=== PATIENT | female | born 1945 | race Caucasian/White ===

== ENCOUNTER 2024-04-21 13:39 | Observation (INO) | payer MEDICARE, SELFPAY ==
[2024-04-21] VITALS (8 sets, daily range): BP systolic 118–149; BP diastolic 60–88; PULSE 62–99; TEMP 36.3–36.9; O2SAT 93–96; BMI 46.7; BMI 47.0
--- NOTE | 2024-04-21 14:04 | ED_ITS ---
HPI HPI - General Adult General Chief complaint: Extremity Problem, Nontraumatic Stated complaint: SENT BY DR BHATT INFECTION IN ARM Time Seen by Provider: 04/21/24 13:43 Source: patient and family (Granddaughter) Mode of arrival: walk-in Limitations: no limitations History of Present Illness HPI narrative: So the 8-year-old female presents to the emergency department with granddaughter with complaint of increasing right arm redness. History of cellulitis in this arm in the past. She was initially evaluated for this occurrence on Friday at [facility]. She was given IV dose of vancomycin and discharged on doxycycline. Today, noticing that her redness is worsening, especially to the triceps region. She does have some associated pain, warmth. Patient also expresses some concern about her congestive heart failure. States she has gained 3 pounds. Feels a little fullness in the abdominal region and has had some dyspnea on exertion. + Fever, Tmax of 101.9 denies any chills, chest pain, motor or sensory changes, paresthesias. Quality:?As above Severity:?Moderate Timing:?As above, worsening Context: Normal setting and activity? Modifying factors:?Worsening despite home meds Associated symptoms: As above Related Data Home Medications ?Medication ?Instructions ?Recorded ?Confirmed citalopram 20 mg tablet 20 mg PO DAILY 04/21/24 04/21/24 doxycycline hyclate 100 mg capsule 100 mg PO BID 04/21/24 04/21/24 fluticasone 250 mcg-salmeterol 50 1 inh inhalation Q12H 04/21/24 04/21/24 mcg/dose blistr powdr for inhalation furosemide 40 mg tablet 40 mg PO DAILY 04/21/24 04/21/24 metoprolol succinate 25 mg 25 mg PO DAILY 04/21/24 04/21/24 tablet,extended release 24 hr montelukast 10 mg tablet 10 mg PO DAILY 04/21/24 04/21/24 spironolactone 25 mg tablet 25 mg PO DAILY 04/21/24 04/21/24 valsartan 40 mg tablet 40 mg PO DAILY 04/21/24 04/21/24 Allergies Allergy/AdvReac Type Severity Reaction Status Date / Time ibuprofen Allergy Severe Congested Verified 04/21/24 13:50 moxifloxacin (From Avelox) Allergy Severe Anaphylaxis Verified 04/21/24 13:50 Penicillins Allergy Severe Rash Verified 04/21/24 13:50 Opioid HPI Opioid Management Most Recent Opioid Data: Last Pain Scale 6 04/21/24 14:02 04/21/24 Review of Systems ROS Narrative CONST: Denies fever, chills RESP: + shortness of breath on exertion CV: Denies chest pain, palpitations GI: + mild abd distension. Denies abd pain, nausea, vomiting MS: Denies back pain, myalgias SKIN: + color change, rash NEURO: Denies numbness, weakness PSYCHIATRIC: Denies confusion, agitation PFSH [facility] Medical History (Updated 04/21/24 @ 15:59 by MARIBEL Flood) Asthma ?J45.909 - Unspecified asthma, uncomplicated (ICD-10) Macular degeneration ?H35.30 - Unspecified macular degeneration (ICD-10) Cancer of breast, female ?C50.919 - Malignant neoplasm of unspecified site of unspecified female breast (ICD-10) Depression ?F32.A - Depression, unspecified (ICD-10) Cellulitis ?L03.90 - Cellulitis, unspecified (ICD-10) HTN (hypertension) ?I10 - Essential (primary) hypertension (ICD-10) CHF (congestive heart failure) ?I50.9 - Heart failure, unspecified (ICD-10) Social History Little interest or pleasure in doing things: not at all Feeling down, depressed, or hopeless: not at all Exam Narrative Exam Narrative: Vital signs reviewed Nurses notes noted CONST: Nontoxic, well appearing, well nourished, in no distress.? No diaphoresis.?? HENT: normocephalic, atraumatic, moist mucous membrane, no abnormalities of the nose noted, hearing normal EYES: normal appearing conjunctiva, no apparent discharge bilat NECK: normal appearance CV: normal rate, regular rhythm, no murmur RESP: normal effort, speaking in complete sentences. Lung sounds clear and equal bilat.? No wheezes, rales, rhonchi MS: Right arm: There is diffuse erythema, warmth noted throughout the extremity. The the areas of erythema are patchy. There is associated tenderness. 2+ palpable distal pulses present. SKIN: + Erythema NEURO: A&Ox 3, no focal findings PSYCH: normal mood, affect Constitutional Vital Signs, click to edit/add: Last Vital Signs Temp 98.5 F 04/21/24 13:45 Pulse 70 04/21/24 15:52 Resp 18 04/21/24 15:52 BP 126/88 04/21/24 15:52 Pulse Ox 96 04/21/24 15:52 O2 Del Method Room Air 04/21/24 13:45 Course Consultations Consultation #1: Patient discussed with Dr. Wiggins who is agreeable with admission Time: 15:54 Vital Signs Vital signs: Vital Signs Temperature 98.5 F 04/21/24 13:45 Pulse Rate 77 04/21/24 13:45 Respiratory Rate 20 04/21/24 13:45 Blood Pressure 127/62 04/21/24 13:45 Pulse Oximetry 93 L 04/21/24 13:45 Oxygen Delivery Method Room Air 04/21/24 13:45 Temperature 98.5 F 04/21/24 13:45 Pulse Rate 70 04/21/24 15:52 Respiratory Rate 18 04/21/24 15:52 Blood Pressure 126/88 04/21/24 15:52 Pulse Oximetry 96 04/21/24 15:52 Oxygen Delivery Method Room Air 04/21/24 13:45 Medical Decision Making MDM Narrative Medical decision making narrative: This is a pleasant 78-year-old female who presents to the emergency department for evaluation of right arm redness. Also has some concern about her congestive heart failure with 3 pound weight gain. Patient received IV dose of vancomycin on Friday and was started on outpatient doxycycline for her arm. Despite this, has noted worsening s/sx and came in for further treatment. On arrival, febrile, afebrile, vital signs are stable On exam, nontoxic, well appearing patient, in no apparent distress. There is diffuse erythema, patches noted throughout her right arm. There is associated warmth, mild tenderness. Distal pulses intact. Neurovascularly intact. Heart regular rate and rhythm. Lung sounds clear and equal bilaterally. IV access established, blood work was drawn and sent to the lab. She was started on IV vancomycin, as well as, IV Rocephin. Labs reveal no leukocytosis, anemia, thrombocytopenia, electrolyte imbalance, renal impairment. Glucose 127. Favor right arm cellulitis SIRS less likely based on vital signs History and Record Review Discussion with independent historian:granddaughter and primary care provider Additional records reviewed: ED chart from 04/19/2024. Patient had white count at that time of 14,000. Lactate was 1.9. Management Discussion with another healthcare provider: Dr. Wiggins, admitting team Independent interpretation imaging: CXR: NAD Re-Evaluation Patient remained stable during evaluation Disposition/plan ED disposition: Plan: Patient will be admitted.? Condition at time of disposition: stable. PLEASE NOTE: Portions of the medical record may have been produced using electronic remote control assembler and may contain errors with respect to translation of words which may not have been identified prior to finalization of the chart. Medical Records Medical records reviewed: Yes I reviewed the patient's medical records Lab Data Lab results reviewed: Yes I reviewed the patient's lab results Labs: Lab Results 04/21/24 Range/Units 13:56 WBC 7.2 (4.0-11.0) 10^3/uL RBC 5.09 (4.20-5.40) 10^6/uL Hgb 15.5 (12.0-16.0) g/dL Hct 47.2 (36.0-48.0) % MCV 92.7 (81.0-99.0) fL MCH 30.5 (26.7-34.0) pg MCHC 32.8 (29.9-35.2) g/dL RDW 13.9 (11.0-15.0) % Plt Count 200 (150-450) 10^3/uL MPV 9.3 L (9.5-13.5) fL Neut % (Auto) 64.3 (43.0-75.0) % Lymph % (Auto) 25.0 (20.5-60.0) % [place] % (Auto) 6.9 (1.7-12.0) % Eos % (Auto) 2.9 (0.9-7.0) % Baso % (Auto) 0.6 (0.2-2.0) % Neut # (Auto) 4.6 (1.4-6.5) 10^3/uL Lymph # (Auto) 1.8 (1.2-3.8) 10^3/uL [place] # (Auto) 0.5 (0.3-0.8) 10^3/uL Eos # (Auto) 0.2 (0.0-0.7) 10^3/uL Baso # (Auto) 0.0 (0.0-0.1) 10^3/uL Abs Immat Gran (auto) 0.02 (0.00-0.03) 10^3/uL Imm/Tot Granulo (auto) 0.3 (0.0-0.5) % Sodium 138 (136-145) mmol/L Potassium 3.5 (3.5-5.1) mmol/L Chloride 103 (98-107) mmol/L Carbon Dioxide 28.1 (21.0-32.0) mmol/L Anion Gap 10.4 BUN 19.0 H (7.0-18.0) mg/dL Creatinine 1.00 (0.55-1.02) mg/dL Est GFR ( Amer) >60 (>=60 mL/min/1.73m^2) Est GFR (Non-Af Amer) 54 L (>=60 mL/min/1.73m^2) BUN/Creatinine Ratio 19.0 Glucose 127 H (74-106) mg/dL Calcium 9.1 (8.5-10.1) mg/dL Magnesium 1.8 (1.8-2.4) mg/dL Total Bilirubin 0.4 (0.2-1.0) mg/dL AST 19 (15-37) U/L ALT 25 (14-59) U/L Alkaline Phosphatase 78 (46-116) U/L NT-Pro-B Natriuret Pep 360.0 (<=1800.0) pg/mL Total Protein 7.4 (6.4-8.2) g/dL Albumin 3.5 (3.4-5.0) g/dL Globulin 3.9 g/dL Albumin/Globulin Ratio 0.9 Imaging Data CXR, Right Forearm, and Right Humerus: Attestation: I have reviewed the pertinent imaging results. Radiologist's impression: Chest x-ray: No consolidation. No pulmonary edema, pleural effusion or pneumothorax. No acute process. Right lung nodule. X-ray right forearm and humerus: No acute fracture or dislocation. Soft tissue are normal. No acute bony process. Discharge Plan Discharge Chief Complaint: Extremity Problem, Nontraumatic Clinical Impression: Cellulitis of arm, right, Failure of outpatient treatment Congestive heart failure Qualifiers: Heart failure type: unspecified Heart failure chronicity: chronic Qualified Code(s): I50.9 - Heart failure, unspecified Patient Disposition: Admitted As Inpatient Time of Disposition Decision: 15:57 Condition: Good
[2024-04-21 14:10] LABS: Basophils Percent Auto 0.6 % (0.2-2.0); Eosinophils Absolute Auto 0.2 10^3/uL (0.0-0.7); Eosinophils Percent Auto 2.9 % (0.9-7.0); Hematocrit 47.2 % (36.0-48.0); Hemoglobin 15.5 g/dL (12.0-16.0); Immature Granulocytes Abs Auto 0.02 10^3/uL (0.00-0.03); Immature Granulocytes Pct Auto 0.3 % (0.0-0.5); Lymphocytes Absolute Auto 1.8 10^3/uL (1.2-3.8); Mean Corpuscular HGB Conc 32.8 g/dL (29.9-35.2); Mean Corpuscular Hemoglobin 30.5 pg (26.7-34.0); Mean Corpuscular Volume 92.7 fL (81.0-99.0); Mean Platelet Volume 9.3 fL (9.5-13.5); Monocytes Absolute Auto 0.5 10^3/uL (0.3-0.8); Monocytes Percent Auto 6.9 % (1.7-12.0); Neutrophils Absolute Auto 4.6 10^3/uL (1.4-6.5); Neutrophils Percent Auto 64.3 % (43.0-75.0); Platelet Count 200 10^3/uL (150-450); Red Blood Count 5.09 10^6/uL (4.20-5.40); Red Cell Distribution Width 13.9 % (11.0-15.0); White Blood Count 7.2 10^3/uL (4.0-11.0)
[2024-04-21] MEDS: CEFTRIAXONE 1,000 MG in 0.9 % SODIUM CHLORIDE 50 ML 100 MG IV (14:17)
[2024-04-21] MEDS: 0.9 % SODIUM CHLORIDE 1,000 ML 999 ML IV (14:17)
[2024-04-21] MEDS: VANCOMYCIN HCL 1,500 MG in 0.9 % SODIUM CHLORIDE 500 ML 250 MG IV (14:34)
[2024-04-21 14:41] LABS: Alanine Aminotransferase 25 U/L (14-59); Albumin Globulin Ratio 0.9; Albumin Level 3.5 g/dL (3.4-5.0); Alkaline Phosphatase 78 U/L (46-116); Anion Gap 10.4; Aspartate Amino Transferase 19 U/L (15-37); Bilirubin Total 0.4 mg/dL (0.2-1.0); Calcium 9.1 mg/dL (8.5-10.1); Carbon Dioxide 28.1 mmol/L (21.0-32.0); Chloride 103 mmol/L (98-107); Estimated GFR (African America >60 (>=60 mL/min/1.73m^2); Estimated GFR (Non-African Ame 54 (>=60 mL/min/1.73m^2); Globulin 3.9 g/dL; Glucose 127 mg/dL (74-106); Magnesium 1.8 mg/dL (1.8-2.4); Potassium 3.5 mmol/L (3.5-5.1); Sodium 138 mmol/L (136-145); Total Protein 7.4 g/dL (6.4-8.2)
[2024-04-21] MEDS: FUROSEMIDE 20 MG/2 ML VIAL IVP (16:17)
[2024-04-21] MEDS: CLINDAMYCIN PHOS 100 MG IV (20:14)
[2024-04-21] MEDS: ALBUTEROL SULFATE 2.5 MG/3 ML VIAL NEB IH (22:01)
[2024-04-21] MEDS: BUDESONIDE 0.5 MG/2 ML AMPULE NEB IH (22:01)
[2024-04-21] MEDS: ACETAMINOPHEN 500 MG TABLET 1000 MG PO (23:44)
[2024-04-22] VITALS (15 sets, daily range): BP systolic 102–144; BP diastolic 50–68; PULSE 57–77; TEMP 36.3–36.9; O2SAT 90–97
[2024-04-22] MEDS: CLINDAMYCIN PHOS 100 MG IV ×4 (03:00→20:15)
[2024-04-22] MEDS: ALBUTEROL SULFATE 2.5 MG/3 ML VIAL NEB IH ×3 (04:05→23:02)
[2024-04-22 05:36] LABS: Basophils Absolute Auto 0.1 10^3/uL (0.0-0.1); Eosinophils Absolute Auto 0.3 10^3/uL (0.0-0.7); Eosinophils Percent Auto 4.2 % (0.9-7.0); Hematocrit 42.6 % (36.0-48.0); Immature Granulocytes Abs Auto 0.02 10^3/uL (0.00-0.03); Immature Granulocytes Pct Auto 0.3 % (0.0-0.5); Lymphocytes Absolute Auto 2.6 10^3/uL (1.2-3.8); Lymphocytes Percent Auto 41.8 % (20.5-60.0); Mean Corpuscular HGB Conc 32.9 g/dL (29.9-35.2); Mean Corpuscular Hemoglobin 30.1 pg (26.7-34.0); Mean Corpuscular Volume 91.6 fL (81.0-99.0); Mean Platelet Volume 8.8 fL (9.5-13.5); Monocytes Absolute Auto 0.7 10^3/uL (0.3-0.8); Monocytes Percent Auto 11.6 % (1.7-12.0); Neutrophils Absolute Auto 2.5 10^3/uL (1.4-6.5); Neutrophils Percent Auto 41.1 % (43.0-75.0); Platelet Count 187 10^3/uL (150-450); Red Blood Count 4.65 10^6/uL (4.20-5.40); Red Cell Distribution Width 14.1 % (11.0-15.0); White Blood Count 6.1 10^3/uL (4.0-11.0)
[2024-04-22 05:47] LABS: Anion Gap 13.6; Calcium 8.7 mg/dL (8.5-10.1); Carbon Dioxide 25.8 mmol/L (21.0-32.0); Chloride 105 mmol/L (98-107); Estimated GFR (African America >60 (>=60 mL/min/1.73m^2); Estimated GFR (Non-African Ame >60 (>=60 mL/min/1.73m^2); Glucose 101 mg/dL (74-106); Potassium 3.4 mmol/L (3.5-5.1); Sodium 141 mmol/L (136-145)
--- OUTSIDE RECORDS SUMMARY | 2024-04-22 06:33 | XMS_ITS | CCD ---
Author Organization [facility] Care Team Providers Care Optoelectronic Technician Name Role Phone JEFFERY, SHARON Admitting Unavailable PAY, SHARON Attending Unavailable BHATT, RICHIE A Primary Care Unavailable MATTI MCMAHAN Consulting Unavailable PAY, SHARON Consulting Unavailable , BO Dobbs Attending Unavailable BHATT, RICHIE A Referring Unavailable BHATT, RICHIE A Primary Care Unavailable BHATT, RICHIE A Referring Unavailable BHATT, RICHIE A Primary Care Unavailable BHATT, RICHIE A Primary Care Unavailable EMMANUEL WISEMAN Attending Unavailable DEBENEDETTI, MISSY Barajas Attending Unavailable BHATT, RICHIE A Referring Unavailable BHATT, RICHIE A Primary Care Unavailable DEBENEDETTI, MISSY Barajas Attending Unavailable DEBENEDETTI, MISSY Barajas Referring Unavailable BHATT, RICHIE A Primary Care Unavailable BHATT, RICHIE A Primary Care Unavailable YENNIFER SWANSON Attending Unavailable BRANDYN BRITO Admitting Unavailable BHATT, RICHIE A Primary Care Unavailable LUCIA, RUQIYYA T Admitting Unavailable LUCIA, RUQIYYA T Attending Unavailable BHATT, RICHIE A Primary Care Unavailable CASPER CABRALES Attending Unavailable Allergies Allergy Classification Reported Allergen(s) Allergy Type Date of Onset Reaction(s) Facility (1 source) moxifloxacin Drug Allergy [facility] Repository (1 source) NSAIDs Drug allergy (disorder) [facility] Rep[facility] (1 source) Penicillin Drug Allergy [facility] Rep[facility] (1 source) Sulfonamides (Antibiotic) Drug allergy (disorder) [facility] Repository (1 source) moxifloxacin; Translations: [MOXIFLOXACIN HCL] Drug Allergy 3 [facility] Repository (1 source) moxifloxacin; Translations: [MOXIFLOXACIN] Drug Allergy 9 [facility] (1 source) Naproxen; Translations: [NAPROXEN] Drug Allergy 9 [facility] Repository (1 source) Penicillins; Translations: [PENICILLINS] Propensity to adverse reactions to drug (disorder) [facility] Repository (1 source) Sulfonamides (Antibiotic); Translations: [SULFA (SULFONAMIDE ANTIBIOTICS)] Propensity to adverse reactions to drug (disorder) 9 [facility] Repository Problems Active Problems Problem Classification Problem Date Documented Date Episodic/Chronic Biliary tract disease (1 source) Disease of biliary tract, unspecified; Translations: [DISEASE BILIARY TRACT UNSPECIFIED] Onset: 09-03-2018 Chronic Chronic obstructive pulmonary disease and bronchiectasis (1 source) Chronic obstructive pulmonary disease with (acute) exacerbation; Translations: [Chronic obstructive pulmonary disease with (acute) exacerbation] Onset: 03-17-2024 Chronic Congestive heart failure; nonhypertensive (3 sources) Chronic combined systolic (congestive) and diastolic (congestive) heart failure; Translations: [Acute systolic (congestive) heart failure] Onset: 05-08-2021 Chronic Coronary atherosclerosis and other heart disease (1 source) Atherosclerotic heart disease of [place] coronary artery without angina pectoris; Translations: [Atherosclerotic heart disease of [place] coronary artery without angina pectoris] Onset: 04-28-2023 Chronic Esophageal disorders (1 source) Gastro-esophageal reflux disease without esophagitis; Translations: [GERD WITHOUT ESOPHAGITIS] Onset: 09-03-2018 Chronic Essential hypertension (1 source) Essential (primary) hypertension; Translations: [Essential (primary) hypertension] Onset: 08-30-2022 Chronic Influenza (1 source) Influenza due to other identified influenza virus with other respiratory manifestations; Translations: [Influenza due to other identified influenza virus with other respiratory manifestations] Onset: 03-17-2024 Episodic Other lower respiratory disease (1 source) Shortness of breath Onset: 02-28-2024 Episodic Other nutritional; endocrine; and metabolic disorders (1 source) Body mass index (BMI) 45.0-49.9, adult; Translations: [Body mass index (BMI) 45.0-49.9, adult] Onset: 08-30-2022 Chronic [place]-; endo-; and myocarditis; cardiomyopathy (except that caused by tuberculosis or sexually transmitted disease) (1 source) Other cardiomyopathies; Translations: [Other cardiomyopathies] Onset: 05-17-2021 Chronic Skin and subcutaneous tissue infections (2 sources) Cellulitis of right upper limb; Translations: [Cellulitis] Onset: 08-30-2022 Episodic Unclassified (1 source) Animal Bite Onset: 10-16-2023 Unclassified (1 source) Wound Check Onset: 10-16-2023 Viral infection (1 source) Other specified viral diseases; Translations: [Other specified viral diseases] Onset: 02-28-2024 Episodic Past or Other Problems Problem Classification Problem Date Documented Da te Episodic/Chronic Abdominal pain (4 sources) Right upper quadrant pain; Translations: [RIGHT UPPER QUADRANT PAIN] Onset: 09-01-2018 Episodic Cancer of breast (1 source) Personal history of malignant neoplasm of breast; Translations: [PERS HX MALIGNANT NEOPLASM BREAST] Onset: 09-03-2018 Episodic E Codes: Natural/environment (1 source) Bitten by cat, initial encounter; Translations: [Bitten by cat, initial encounter] Onset: 10-16-2023 Episodic Other lower respiratory disease (1 source) Shortness of breath; Translations: [Shortness of breath] Onset: 09-30-2021 Episodic Other screening for suspected conditions (not mental disorders or infectious disease) (1 source) Encounter for screening mammogram for malignant neoplasm of breast; Translations: [Encounter for screening mammogram for malignant neoplasm of breast] Onset: 06-23-2023 Episodic Residual codes; unclassified (1 source) Acquired absence of other specified parts of digestive tract; Translations: [ACQ ABSENCE OTH PART DIGESTV TRACT] Onset: 09-03-2018 Episodic Results Test Name Value Interpretation Reference Range Facility BASIC METABOLIC PANLon 04-19 Anion gap [Moles/Vol] 10 mmol/L Normal 5-15 [facility] Comment on above: Performed By: #### C BCA, 28007-3, PINR, 44877-8, CMP, 24822-9, 76048-3, 29124-0 #### [facility] ([id number]) [address] [place] [address], [place] [address] Calcium [Mass/Vol] 9.5 mg/dL Normal 8.5-10.5 [facility] Comment on above: Performed By: #### C BCA, 81338-5, PINR, 78531-3, CMP, 97321-9, 16834-8, 54910-8 #### [facility] ([id number]) [address] [place] [address] 55232 Chloride [Moles/Vol] 100 mmol/L Normal 98-109 [facility] Comment on above: Performed By: #### C BCA, 08063-5, PINR, 50241-6, CMP, 60149-1, 56811-1, 58009-4 #### [facility] ([id number]) [address] [place] [address] 83536 CO2 [Moles/Vol] 22 mmol/L Normal 22-32 [facility] Comment on above: Performed By: #### C BCA, 42755-7, PINR, 27692-6, CMP, 73179-2, 20651-5, 95306-3 #### [facility] ([id number]) [address] [place] [address] 20205 Creatinine [Mass/Vol] 0.96 mg/dL Normal 0.40-1.00 [facility] Comment on above: Result Comment: METH OD TRACEABLE TO IDMS STANDARD Performed By: #### C BCA, 67202-4, PINR, 04220-1, CMP, 46216-5, 59841-7, 51555-5 #### [facility] ([id number]) [address] [place] [address] 61607 GFR/1.73 sq M.predicted among non-blacks MDRD (S/P/Bld) [Vol rate/Area] 61 mL/min/{1.73_m2} Normal >59 [facility] Comment on above: Result Comment: Reported eGFR is based on the CKD-EPI 2020 equation that does not use a race coefficient. Performed By: #### C BCA, 30104-9, PINR, 52825-2, CMP, 39952-0, 20209-7, 84155-3 #### [facility] ([id number]) [address] [place] [address] 50829 Glucose [Mass/Vol] 135 mg/dL High 65-99 [facility] Comment on above: Performed By: #### C BCA, 13084-4, PINR, 29983-4, CMP, 28813-1, 68054-6, 77153-3 #### [facility] ([id number]) [address] [place] [address] 98952 Potassium [Moles/Vol] 3.7 mmol/L Normal 3.5-5.0 [facility] Comment on above: Performed By: #### C BCA, 05768-6, PINR, 38739-2, CMP, 83221-7, 26202-0, 99846-3 #### [facility] ([id number]) [address] [place] [address] 07234 Sodium [Moles/Vol] 132 mmol/L Low 134-146 [facility] Comment on above: Performed By: #### C BCA, 64843-5, PINR, 11724-2, CMP, 29139-1, 90045-3, 83439-9 #### [facility] ([id number]) [address] [place] [address] 28872 Urea nitrogen [Mass/Vol] 22 mg/dL Normal 5-27 [facility] Comment on above: Performed By: #### C BCA, 65331-7, PINR, 65605-4, CMP, 79923-3, 64170-7, 68209-2 #### [facility] ([id number]) [address] [place] [address] 40367 CBC AND AUTO DIFFon 03-10-20 25 ABSOLUTE BASOPHIL 0.0 X10E9/L Normal 0.0-0.2 [facility] Comment on above: Performed By: #### C BCA, 96885-7, PINR, 98690-3, CMP, 61008-7, 06236-0, 76631-0 #### [facility] ([id number]) [address] [place] [address] 39841 ABSOLUTE NEUTROPHIL 11.6 X10E9/L High 1.5-6.6 [facility] Comment on above: Performed By: #### C BCA, 91101-0, PINR, 80842-0, CMP, 66688-9, 59026-5, 92328-6 #### [facility] ([id number]) [address] [place] [address] 12988 Basophils/100 WBC (Bld) 0.3 % Normal [facility] Comment on above: Performed By: #### C BCA, 85100-4, PINR, 25421-5, CMP, 94953-3, 16808-9, 35691-6 #### [facility] ([id number]) [address] [place] [address] 18421 Eosinophils (Bld) [#/Vol] 0.0 10*3/uL Normal 0.0-0.4 [facility] Comment on above: Performed By: #### C BCA, 28611-3, PINR, 21765-4, CMP, 71900-9, 77207-2, 65788-5 #### [facility] ([id number]) [address] [place] [address] 83765 Eosinophils/100 WBC (Bld) 0.1 % Normal [facility] Comment on above: Performed By: #### C BCA, 19239-4, PINR, 65995-9, CMP, 68840-5, 34938-0, 19938-7 #### [facility] ([id number]) [address] [place] [address] 28608 Erythrocyte distribution width (RBC) [Ratio] 14.2 % Normal 11.5-15.0 [facility] Comment on above: Performed By: #### C BCA, 95524-0, PINR, 93862-7, CMP, 61895-9, 81799-4, 29072-9 #### [facility] ([id number]) [address] [place] [address] 20601 Hematocrit (Bld) [Volume fraction] 46.2 % Normal 35-47 [facility] Comment on above: Performed By: #### C BCA, 30126-0, PINR, 13979-0, CMP, 15435-2, 45512-4, 78587-3 #### [facility] ([id number]) [address] [place] [address] 90571 Hemoglobin (Bld) [Mass/Vol] 15.6 g/dL High 11.7-15.5 [facility] Comment on above: Performed By: #### C BCA, 92866-9, PINR, 70176-9, CMP, 25050-1, 96526-6, 23678-6 #### [facility] ([id number]) [address] [place] [address] 24717 Lymphocytes (Bld) [#/Vol] 1.2 10*3/uL Normal 1.0-3.5 [facility] Comment on above: Performed By: #### C BCA, 75128-5, PINR, 61421-4, CMP, 20621-8, 88009-4, 93296-6 #### [facility] ([id number]) [address] [place] [address] 47794 Lymphocytes/100 WBC (Bld) 8.3 % Normal [facility] Comment on above: Performed By: #### C BCA, 09676-5, PINR, 24696-9, CMP, 83182-3, 33800-8, 62820-5 #### [facility] ([id number]) [address] [place] [address] 89702 MCH (RBC) [Entitic mass] 30.4 pg Normal 27-34 [facility] Comment on above: Performed By: #### C BCA, 39403-7, PINR, 75254-7, CMP, 16742-0, 27355-5, 21294-5 #### [facility] ([id number]) [address] [place] [address] 00914 MCHC (RBC) [Mass/Vol] 33.9 g/dL Normal 32-36 [facility] Comment on above: Performed By: #### C BCA, 98210-1, PINR, 85201-2, CMP, 14976-3, 77404-2, 32014-5 #### [facility] ([id number]) [address] [place] [address] 96190 MCV (RBC) [Entitic vol] 90 fL Normal 80-100 [facility] Comment on above: Performed By: #### C BCA, 79459-2, PINR, 10468-2, CMP, 16460-8, 01028-6, 44727-0 #### [facility] ([id number]) [address] [place] [address] 04479 Monocytes (Bld) [#/Vol] 1.2 10*3/uL High 0-0.9 [facility] Comment on above: Performed By: #### C BCA, 09221-4, PINR, 87082-2, CMP, 01442-9, 73620-6, 44514-3 #### [facility] ([id number]) [address] [place] [address] 19530 Monocytes/100 WBC (Bld) 8.4 % Normal [facility] Comment on above: Performed By: #### C BCA, 57477-0, PINR, 14433-9, CMP, 70858-1, 94696-2, 59127-5 #### [facility] ([id number]) [address] [place] [address] 34540 Neutrophils/100 WBC (Bld) 82.9 % Normal [facility] Comment on above: Performed By: #### C BCA, 31252-9, PINR, 24643-8, CMP, 65658-0, 48763-8, 86265-4 #### [facility] ([id number]) [address] [place] [address] 74548 Platelet mean volume (Bld) [Entitic vol] 6.9 fL Low 7-12 [facility] Comment on above: Performed By: #### C BCA, 38512-4, PINR, 96092-1, CMP, 60540-0, 25392-3, 07519-4 #### [facility] ([id number]) [address] [place] [address] 90892 Platelets (Bld) [#/Vol] 198 10*3/uL Normal 150-450 [facility] Comment on above: Performed By: #### Ta BCA, 81964-6, PINR, 80687-6, CMP, 18252-5, 86251-3, 90756-7 #### [facility] ([id number]) [address] [place] [address] 25498 RBC COUNT 5.14 X10E12/L Normal 3.80-5.20 [facility] Comment on above: Performed By: #### Ta BCA, 10913-1, PINR, 99168-1, CMP, 75126-3, 71021-9, 26061-1 #### [facility] ([id number]) [address] [place] [address] 82022 WBC (Bld) [#/Vol] 14.0 10*3/uL High 4.0-11.0 [facility] Comment on above: Performed By: #### Ta BCA, 86421-8, PINR, 03559-7, CMP, 47215-4, 89197-5, 98032-7 #### [facility] ([id number]) [address] [place] [address] 21097 Lactate (P chavo) [Moles/Vol]o n 04-19-2024 LACTATE W/REFLEX 1.9 mmol/L Normal 0.4-2.0 [facility] Comment on above: Result Comment: Result did not trigger repeat Lactate, re-order if needed. Performed By: #### C BCA, 70015-8, PINR, 59075-7, CMP, 26527-6, 36344-8, 09088-0 #### [facility] ([id number]) [address] [place] [address] 58871 URN MACROSCOPIC NURon 2024 BILIRUBIN [place] Negative Normal [facility] Comment on above: Performed By: #### C BCA, 44212-1, PINR, 44854-9, CMP, 33765-2, 72635-3, 44827-5 #### [facility] ([id number]) [address] [place] [address] 81833 BLOOD/HGB [place] Trace Abnormal [facility] Comment on above: Performed By: #### C BCA, 82051-2, PINR, 42977-0, CMP, 31099-2, 77933-9, 37662-8 #### [facility] ([id number]) [address] [place] [address] 56396 GLUCOSE [place] 500 mg/dL Abnormal [facility] Comment on above: Performed By: #### C BCA, 20443-7, PINR, 61072-6, CMP, 81495-1, 26176-1, 78694-4 #### [facility] ([id number]) [address] [place] [address] 64998 KETONES [place] Trace Abnormal [facility] Comment on above: Performed By: #### C BCA, 63463-9, PINR, 48353-7, CMP, 10172-3, 15353-1, 95004-6 #### [facility] ([id number]) [address] [place] [address] 04270 LEUKOCYTE ESTERASE [place] Negative Normal [facility] Comment on above: Performed By: #### C BCA, 96036-5, PINR, 86252-9, CMP, 12608-6, 51708-8, 97297-1 #### [facility] ([id number]) [address] [place] [address] 21695 NITRITE [place] Negative Normal [facility] Comment on above: Performed By: #### C BCA, 12617-3, PINR, 66181-7, CMP, 63315-1, 73405-0, 28553-6 #### [facility] ([id number]) [address] [place] [address] 07793 PH [place] 5.5 Normal 5.0-8.5 [facility] Comment on above: Performed By: #### C BCA, 12626-2, PINR, 10434-8, CMP, 57505-4, 93300-6, 10425-9 #### [facility] ([id number]) [address] [place] [address] 52642 PROTEIN [place] Trace Abnormal [facility] Comment on above: Performed By: #### C BCA, 30418-9, PINR, 79320-4, CMP, 22763-3, 39276-9, 30970-5 #### [facility] ([id number]) [address] [place] [address] 73738 SPECIFIC GRAVITY [place] 1.020 Normal 1.003-1.035 [facility] Comment on above: Performed By: #### C BCA, 83813-3, PINR, 46843-1, CMP, 78307-8, 57178-6, 20759-2 #### [facility] ([id number]) [address] [place] [address] 62654 UROBILINOGEN [place] 0.2 eu/dL Normal <1.1 [facility] Comment on above: Performed By: #### C BCA, 07806-0, PINR, 92964-9, CMP, 08533-2, 91295-5, 12328-3 #### [facility] ([id number]) [address] [place] [address] 72061 CBC AND AUTO DIFFon 03-19-19 25 ABSOLUTE BASOPHIL 0.0 X10E9/L Normal 0.0-0.2 [facility] Comment on above: Performed By: #### C BCA, 88263-2, PINR, 84834-9, CMP, 51873-5, 85352-4, 89687-1 #### [facility] ([id number]) [address] [place] [address] 48380 ABSOLUTE NEUTROPHIL 7.3 X10E9/L High 1.5-6.6 [facility] Comment on above: Performed By: #### C BCA, 48644-4, PINR, 22155-3, CMP, 77683-1, 80545-5, 41588-0 #### [facility] ([id number]) [address] [place] [address] 71838 Basophils/100 WBC (Bld) 0.1 % Normal [facility] Comment on above: Performed By: #### C BCA, 60932-8, PINR, 61162-5, CMP, 94784-5, 51849-0, 32190-3 #### [facility] ([id number]) [address] [place] [address] 63849 Eosinophils (Bld) [#/Vol] 0.0 10*3/uL Normal 0.0-0.4 [facility] Comment on above: Performed By: #### C BCA, 20538-8, PINR, 49118-4, CMP, 85539-1, 19878-5, 89628-9 #### [facility] ([id number]) [address] [place] [address] 27002 Eosinophils/100 WBC (Bld) 0.0 % Normal [facility] Comment on above: Performed By: #### C BCA, 13576-7, PINR, 49419-3, CMP, 76762-9, 16533-0, 97847-0 #### [facility] ([id number]) [address] [place] [address] 02824 Erythrocyte distribution width (RBC) [Ratio] 13.9 % Normal 11.5-15.0 [facility] Comment on above: Performed By: #### C BCA, 16551-2, PINR, 58798-2, CMP, 42770-3, 06700-0, 44404-7 #### [facility] ([id number]) [address] [place] [address] 62495 Hematocrit (Bld) [Volume fraction] 43.0 % Normal 35-47 [facility] Comment on above: Performed By: #### C BCA, 31468-4, PINR, 50035-2, CMP, 40857-1, 23485-5, 54588-0 #### [facility] ([id number]) [address] [place] [address] 20526 Hemoglobin (Bld) [Mass/Vol] 14.6 g/dL Normal 11.7-15.5 [facility] Comment on above: Performed By: #### C BCA, 94670-1, PINR, 43540-0, CMP, 33314-1, 22867-6, 75659-8 #### [facility] ([id number]) [address] [place] [address] 05574 Lymphocytes (Bld) [#/Vol] 0.6 10*3/uL Low 1.0-3.5 [facility] Comment on above: Performed By: #### C BCA, 11968-7, PINR, 26032-3, CMP, 18704-6, 31313-5, 74903-7 #### [facility] ([id number]) [address] [place] [address] 45469 Lymphocytes/100 WBC (Bld) 7.4 % Normal [facility] Comment on above: Performed By: #### C BCA, 24873-6, PINR, 11866-7, CMP, 72084-4, 39655-5, 66262-9 #### [facility] ([id number]) [address] [place] [address] 71663 MCH (RBC) [Entitic mass] 30.8 pg Normal 27-34 [facility] Comment on above: Performed By: #### C BCA, 30334-4, PINR, 50329-6, CMP, 83102-9, 69457-4, 42604-3 #### [facility] ([id number]) [address] [place] [address] 21269 MCHC (RBC) [Mass/Vol] 33.9 g/dL Normal 32-36 [facility] Comment on above: Performed By: #### C BCA, 03829-9, PINR, 90783-5, CMP, 22333-1, 11040-0, 75194-0 #### [facility] ([id number]) [address] [place] [address] 93444 MCV (RBC) [Entitic vol] 91 fL Normal 80-100 [facility] Comment on above: Performed By: #### C BCA, 63611-8, PINR, 29440-8, CMP, 96990-7, 66688-5, 68581-8 #### [facility] ([id number]) [address] [place] [address] 67793 Monocytes (Bld) [#/Vol] 0.5 10*3/uL Normal 0-0.9 [facility] Comment on above: Performed By: #### C BCA, 16627-9, PINR, 84996-7, CMP, 39368-4, 54201-5, 85557-4 #### [facility] ([id number]) [address] [place] [address] 58390 Monocytes/100 WBC (Bld) 5.7 % Normal [facility] Comment on above: Performed By: #### C BCA, 16646-0, PINR, 93779-4, CMP, 48950-3, 88627-4, 30812-0 #### [facility] ([id number]) [address] [place] [address] 51716 Neutrophils/100 WBC (Bld) 86.8 % Normal [facility] Comment on above: Performed By: #### C BCA, 82922-1, PINR, 15771-9, CMP, 47730-0, 15180-9, 77603-7 #### [facility] ([id number]) [address] [place] [address] 04422 Platelet mean volume (Bld) [Entitic vol] 7.8 fL Normal 7-12 [facility] Comment on above: Performed By: #### C BCA, 37014-4, PINR, 45024-1, CMP, 44908-7, 53038-2, 51210-1 #### [facility] ([id number]) [address] [place] [address] 07423 Platelets (Bld) [#/Vol] 186 10*3/uL Normal 150-450 [facility] Comment on above: Performed By: #### C BCA, 50567-5, PINR, 31472-1, CMP, 06596-2, 77969-3, 50866-6 #### [facility] ([id number]) [address] [place] [address] 73468 RBC COUNT 4.73 X10E12/L Normal 3.80-5.20 [facility] Comment on above: Performed By: #### C BCA, 52918-6, PINR, 80189-5, CMP, 99994-1, 85475-1, 35106-9 #### [facility] ([id number]) [address] [place] [address] 24825 WBC (Bld) [#/Vol] 8.4 10*3/uL Normal 4.0-11.0 [facility] Comment on above: Performed By: #### C BCA, 79384-8, PINR, 44305-2, CMP, 70706-2, 32663-6, 90563-4 #### [facility] ([id number]) [address] [place] [address]190 COMPREHENSIVE METABOLIC PANE Mark 03-19-2024 Albumin [Mass/Vol] 3.8 g/dL Normal 3.2-5.3 [facility] Comment on above: Performed By: #### C BCA, 57612-7, PINR, 38715-3, CMP, 08356-4, 80837-8, 26671-3 #### [facility] ([id number]) [address] [place] [address] 24811 ALP [Catalytic activity/Vol] 52 U/L Normal 39-130 [facility] Comment on above: Performed By: #### C BCA, 30003-6, PINR, 46618-3, CMP, 44546-8, 34406-8, 74197-5 #### [facility] ([id number]) [address] [place] [address] 34254 ALT [Catalytic activity/Vol] 18 U/L Normal 0-31 [facility] Comment on above: Performed By: #### C BCA, 16786-8, PINR, 66781-8, CMP, 90461-2, 98398-3, 27330-0 #### [facility] ([id number]) [address] [place] [address] 54017 Anion gap [Moles/Vol] 11 mmol/L Normal 5-15 [facility] Comment on above: Performed By: #### C BCA, 06048-3, PINR, 77818-3, CMP, 43916-4, 57843-5, 06842-9 #### [facility] ([id number]) [address] [place] [address] 58631 AST [Catalytic activity/Vol] 21 U/L Normal 0-41 [facility] Comment on above: Performed By: #### C BCA, 56798-7, PINR, 65164-1, CMP, 53688-5, 48967-6, 20817-0 #### [facility] ([id number]) [address] [place] [address] 43811 Bilirubin [Mass/Vol] 0.4 mg/dL Normal 0.3-1.2 [facility] Comment on above: Performed By: #### C BCA, 42488-0, PINR, 50852-3, CMP, 39236-1, 21275-6, 90827-7 #### [facility] ([id number]) [address] [place] [address] 86695 Calcium [Mass/Vol] 9.1 mg/dL Normal 8.5-10.5 [facility] Comment on above: Performed By: #### C BCA, 21214-9, PINR, 85962-9, CMP, 52748-5, 14674-4, 40160-5 #### [facility] ([id number]) [address] [place] [address] 83072 Chloride [Moles/Vol] 103 mmol/L Normal 98-109 [facility] Comment on above: Performed By: #### C BCA, 32885-9, PINR, 27616-0, CMP, 33289-4, 66974-5, 75131-2 #### [facility] ([id number]) [address] [place] [address] 85628 CO2 [Moles/Vol] 23 mmol/L Normal 22-32 [facility] Comment on above: Performed By: #### C BCA, 43662-5, PINR, 41164-8, CMP, 97961-8, 85839-6, 39962-3 #### [facility] ([id number]) [address] [place] [address] 43126 Creatinine [Mass/Vol] 0.55 mg/dL Normal 0.40-1.00 [facility] Comment on above: Result Comment: METH OD TRACEABLE TO IDMS STANDARD Performed By: #### C BCA, 49781-5, PINR, 84286-3, CMP, 02187-4, 62276-1, 12960-5 #### [facility] ([id number]) [address] [place] [address] 48025 eGFR (CKD-EPI) NON-RACE DEPENDENT >90 Normal >59 [facility] Comment on above: Result Comment: Reported eGFR is based on the CKD-EPI 2020 equation that does not use a race coefficient. Performed By: #### C BCA, 62954-6, PINR, 94599-9, CMP, 47145-1, 17471-4, 81027-9 #### [facility] ([id number]) [address] [place] [address] 43093 Glucose [Mass/Vol] 161 mg/dL High 65-99 [facility] Comment on above: Performed By: #### C BCA, 84259-2, PINR, 71900-9, CMP, 67761-6, 76623-8, 99380-3 #### [facility] ([id number]) [address] [place] [address] 08222 Potassium [Moles/Vol] 4.2 mmol/L Normal 3.5-5.0 [facility] Comment on above: Performed By: #### C BCA, 68116-1, PINR, 81259-8, CMP, 84662-2, 50448-7, 06841-6 #### [facility] ([id number]) [address] [place] [address] 94936 Protein [Mass/Vol] 6.4 g/dL Normal 6.0-8.0 [facility] Comment on above: Performed By: #### C BCA, 69699-0, PINR, 76712-6, CMP, 72039-7, 24088-6, 40262-5 #### [facility] ([id number]) [address] [place] [address] 86097 Sodium [Moles/Vol] 137 mmol/L Normal 134-146 [facility] Comment on above: Performed By: #### C BCA, 88599-6, PINR, 35216-5, CMP, 94543-6, 68059-0, 51930-5 #### [facility] ([id number]) [address] [place] [address] 66901 Urea nitrogen [Mass/Vol] 17 mg/dL Normal 5-27 [facility] Comment on above: Performed By: #### C BCA, 09543-3, PINR, 69441-9, CMP, 08175-1, 30141-2, 58998-9 #### [facility] ([id number]) [address] [place] [address] 67616 HGB A1C (GLYCO-HGB)on 2024 Glucose [Mass/Vol] 114 mg/dL Normal [facility] Comment on above: Performed By: #### C BCA, 51836-6, PINR, 90715-8, CMP, 70760-3, 36767-2, 90015-3 #### [facility] ([id number]) [address] [place] [address] 79399 HbA1c (Bld) [Mass fraction] 5.6 % Normal 4.4-5.6 [facility] Comment on above: Result Comment: NOTE ADA Guidelines Result HgbA1c Normal : less than 5.7 % Prediabetes : 5.7 % to 6.4 % Diabetes : > 6.4 % Use with caution in patients with abnormal hemoglobin variants as the half-life of red blood cells and in vivo glycation rates are affected. Performed By: #### C KRISHNA, 08850-2, PINR, 93425-4, CMP, 22933-8, 20688-2, 82338-9 #### [facility] ([id number]) [address] [place] [address] 06666 MAGNESIUMon 03-19-2024 Magnesium [Mass/Vol] 2.3 mg/dL Normal 1.8-2.6 [facility] Comment on above: Performed By: #### C KRISHNA, 06233-5, PINR, 25741-6, CMP, 98889-1, 36801-1, 25224-3 #### [facility] ([id number]) [address] [place] [address] 57635 CBC AND AUTO DIFFon 03-18-19 25 ABSOLUTE BASOPHIL 0.0 X10E9/L Normal 0.0-0.2 [facility] Comment on above: Performed By: #### Ta KELLER, BMP #### [facility] ([id number]) [address] [place] [address] 70530 ABSOLUTE NEUTROPHIL 2.9 X10E9/L Normal 1.5-6.6 [facility] Comment on above: Performed By: #### Ta KELLER, BMP #### [facility] ([id number]) [address] [place] [address] 84669 Basophils/100 WBC (Bld) 0.2 % Normal [facility] Comment on above: Performed By: #### Ta KELLER, BMP #### [facility] ([id number]) [address] [place] [address] 53242 Eosinophils (Bld) [#/Vol] 0.0 10*3/uL Normal 0.0-0.4 [facility] Comment on above: Performed By: #### Ta KELLER, BMP #### [facility] ([id number]) [address] [place] [address] 38341 Eosinophils/100 WBC (Bld) 0.0 % Normal [facility] Comment on above: Performed By: #### C KRISHNA, BMP #### [facility] ([id number]) [address] [place] [address] 69153 Erythrocyte distribution width (RBC) [Ratio] 13.7 % Normal 11.5-15.0 [facility] Comment on above: Performed By: #### C KRISHNA, BMP #### [facility] ([id number]) [address] [place] [address] 86483 Hematocrit (Bld) [Volume fraction] 43.5 % Normal 35-47 [facility] Comment on above: Performed By: #### C KRISHNA, BMP #### [facility] ([id number]) [address] [place] [address] 00430 Hemoglobin (Bld) [Mass/Vol] 14.7 g/dL Normal 11.7-15.5 [facility] Comment on above: Performed By: #### C KRISHNA, BMP #### [facility] ([id number]) [address] [place] [address] 20133 Lymphocytes (Bld) [#/Vol] 0.5 10*3/uL Low 1.0-3.5 [facility] Comment on above: Performed By: #### C KRISHNA, BMP #### [facility] ([id number]) [address] [place] [address] 69401 Lymphocytes/100 WBC (Bld) 13.1 % Normal [facility] Comment on above: Performed By: #### C KRISHNA, BMP #### [facility] ([id number]) [address] [place] [address] 57002 MCH (RBC) [Entitic mass] 30.7 pg Normal 27-34 [facility] Comment on above: Performed By: #### C KRISHNA, BMP #### [facility] ([id number]) [address] [place] [address] 07510 MCHC (RBC) [Mass/Vol] 33.9 g/dL Normal 32-36 [facility] Comment on above: Performed By: #### C KRISHNA, BMP #### [facility] ([id number]) [address] [place] [address] 39907 MCV (RBC) [Entitic vol] 91 fL Normal 80-100 [facility] Comment on above: Performed By: #### C KRISHNA, BMP #### [facility] ([id number]) [address] [place] [address] 65077 Monocytes (Bld) [#/Vol] 0.2 10*3/uL Normal 0-0.9 [facility] Comment on above: Performed By: #### Ta KELLER, BMP #### [facility] ([id number]) [address] [place] [address] 40167 Monocytes/100 WBC (Bld) 4.8 % Normal [facility] Comment on above: Performed By: #### Ta KELLER, BMP #### [facility] ([id number]) [address] [place] [address] 98562 Neutrophils/100 WBC (Bld) 81.9 % Normal [facility] Comment on above: Performed By: #### Ta KELLER, BMP #### [facility] ([id number]) [address] [place] [address] [place] [address] Platelet mean volume (Bld) [Entitic vol] 7.1 fL Normal 7-12 [facility] Comment on above: Performed By: #### Ta KELLER, BMP #### [facility] ([id number]) [address] [place] [address] 29884 Platelets (Bld) [#/Vol] 166 10*3/uL Normal 150-450 [facility] Comment on above: Performed By: #### C BCA, BMP #### [facility] ([id number]) [address] [place] [address] 16278 RBC COUNT 4.79 X10E12/L Normal 3.80-5.20 [facility] Comment on above: Performed By: #### C BCA, BMP #### [facility] ([id number]) [address] [place] [address] 22336 WBC (Bld) [#/Vol] 3.6 10*3/uL Low 4.0-11.0 [facility] Comment on above: Performed By: #### C BCA, BMP #### [facility] ([id number]) [address] [place] [address] 81203 COMPREHENSIVE METABOLIC PANE Mark 03-18-2024 Albumin [Mass/Vol] 3.7 g/dL Normal 3.2-5.3 [facility] Comment on above: Performed By: #### C BCA, 57592-6, PINR, 43338-3, CMP, 14460-4, 47276-1, 18836-9 #### [facility] ([id number]) [address] [place] [address] 14666 ALP [Catalytic activity/Vol] 54 U/L Normal 39-130 [facility] Comment on above: Performed By: #### C BCA, 15070-9, PINR, 83121-3, CMP, 16437-1, 92662-6, 35599-0 #### [facility] ([id number]) [address] [place] [address] 10429 ALT [Catalytic activity/Vol] 17 U/L Normal 0-31 [facility] Comment on above: Performed By: #### C BCA, 15380-8, PINR, 23135-3, CMP, 74223-8, 93112-4, 05677-7 #### [facility] ([id number]) [address] [place] [address] 09040 Anion gap [Moles/Vol] 9 mmol/L Normal 5-15 [facility] Comment on above: Performed By: #### C BCA, 85284-6, PINR, 99990-7, CMP, 67222-1, 90016-5, 93323-8 #### [facility] ([id number]) [address] [place] [address] 09624 AST [Catalytic activity/Vol] 15 U/L Normal 0-41 [facility] Comment on above: Performed By: #### C BCA, 73788-9, PINR, 87765-5, CMP, 51216-7, 55236-8, 52177-7 #### [facility] ([id number]) [address] [place] [address] 88608 Bilirubin [Mass/Vol] 0.6 mg/dL Normal 0.3-1.2 [facility] Comment on above: Performed By: #### C BCA, 29447-4, PINR, 36982-9, CMP, 73663-5, 62330-2, 00441-9 #### [facility] ([id number]) [address] [place] [address] 12444 Calcium [Mass/Vol] 9.0 mg/dL Normal 8.5-10.5 [facility] Comment on above: Performed By: #### C BCA, 04820-2, PINR, 66890-9, CMP, 18678-9, 00590-9, 78390-9 #### [facility] ([id number]) [address] [place] [address] 03256 Chloride [Moles/Vol] 103 mmol/L Normal 98-109 [facility] Comment on above: Performed By: #### C BCA, 36219-0, PINR, 71152-4, CMP, 94149-0, 24672-3, 77866-0 #### [facility] ([id number]) [address] [place] [address] 65282 CO2 [Moles/Vol] 23 mmol/L Normal 22-32 [facility] Comment on above: Performed By: #### C BCA, 09652-0, PINR, 04307-7, CMP, 75121-3, 44855-1, 19338-3 #### [facility] ([id number]) [address] [place] [address] 24688 Creatinine [Mass/Vol] 0.54 mg/dL Normal 0.40-1.00 [facility] Comment on above: Result Comment: METH OD TRACEABLE TO IDMS STANDARD Performed By: #### C BCA, 60192-2, PINR, 15879-8, CMP, 77628-4, 55594-4, 53603-1 #### [facility] ([id number]) [address] [place] [address] 08978 eGFR (CKD-EPI) NON-RACE DEPENDENT >90 Normal >59 [facility] Comment on above: Result Comment: Reported eGFR is based on the CKD-EPI 2020 equation that does not use a race coefficient. Performed By: #### C BCA, 15130-4, PINR, 86349-7, CMP, 05235-4, 52769-3, 18628-2 #### [facility] ([id number]) [address] [place] [address] 67260 Glucose [Mass/Vol] 154 mg/dL High 65-99 [facility] Comment on above: Performed By: #### C BCA, 80924-3, PINR, 41119-4, CMP, 77946-1, 08013-2, 28741-3 #### [facility] ([id number]) [address] [place] [address] 41183 Potassium [Moles/Vol] 3.9 mmol/L Normal 3.5-5.0 [facility] Comment on above: Performed By: #### C BCA, 40931-4, PINR, 48884-2, CMP, 46699-4, 54446-5, 94343-6 #### [facility] ([id number]) [address] [place] [address] 63584 Protein [Mass/Vol] 6.5 g/dL Normal 6.0-8.0 [facility] Comment on above: Performed By: #### C BCA, 88522-7, PINR, 53159-1, CMP, 50616-9, 68283-4, 41546-9 #### [facility] ([id number]) [address] [place] [address] 06797 Sodium [Moles/Vol] 135 mmol/L Normal 134-146 [facility] Comment on above: Performed By: #### C BCA, 59153-5, PINR, 80758-6, CMP, 75225-7, 40426-7, 07626-8 #### [facility] ([id number]) [address] [place] [address] 18365 Urea nitrogen [Mass/Vol] 15 mg/dL Normal 5-27 [facility] Comment on above: Performed By: #### C BCA, 12885-9, PINR, 49188-0, CMP, 17381-7, 14812-4, 11018-5 #### [facility] ([id number]) [address] [place] [address] 19738 MAGNESIUMon 03-18-2024 Magnesium [Mass/Vol] 2.3 mg/dL Normal 1.8-2.6 [facility] Comment on above: Performed By: #### C BCA, 61742-8, PINR, 91267-2, CMP, 73455-0, 44261-4, 29317-2 #### [facility] ([id number]) [address] [place] [address] 76641 BASIC METABOLIC PANLon 03-17 Anion gap [Moles/Vol] 6 mmol/L Normal 5-15 [facility] Comment on above: Performed By: #### C BCA, BMP #### [facility] ([id number]) [address] [place] [address] 02513 Calcium [Mass/Vol] 8.6 mg/dL Normal 8.5-10.5 [facility] Comment on above: Performed By: #### C BCA, BMP #### [facility] ([id number]) [address] [place] [address] 55563 Chloride [Moles/Vol] 105 mmol/L Normal 98-109 [facility] Comment on above: Performed By: #### C BCA, BMP #### [facility] ([id number]) [address] [place] [address] 95503 CO2 [Moles/Vol] 24 mmol/L Normal 22-32 [facility] Comment on above: Performed By: #### C BCA, BMP #### [facility] ([id number]) [address] [place] [address] 69509 Creatinine [Mass/Vol] 0.73 mg/dL Normal 0.40-1.00 [facility] Comment on above: Result Comment: METH OD TRACEABLE TO IDMS STANDARD Performed By: #### C KRISHNA, BMP #### [facility] ([id number]) [address] [place] [address] 54886 GFR/1.73 sq M.predicted among non-blacks MDRD (S/P/Bld) [Vol rate/Area] 84 mL/min/{1.73_m2} Normal >59 [facility] Comment on above: Result Comment: Reported eGFR is based on the CKD-EPI 2020 equation that does not use a race coefficient. Performed By: #### C BCA, BMP #### [facility] ([id number]) [address] [place] [address] 47529 Glucose [Mass/Vol] 133 mg/dL High 65-99 [facility] Comment on above: Performed By: #### C BCA, BMP #### [facility] ([id number]) [address] [place] [address] 70174 Potassium [Moles/Vol] 3.7 mmol/L Normal 3.5-5.0 [facility] Comment on above: Performed By: #### C BCA, BMP #### [facility] ([id number]) [address] [place] [address] 73343 Sodium [Moles/Vol] 135 mmol/L Normal 134-146 [facility] Comment on above: Performed By: #### C KRISHNA, BMP #### [facility] ([id number]) [address] [place] [address] 09684 Urea nitrogen [Mass/Vol] 14 mg/dL Normal 5-27 [facility] Comment on above: Performed By: #### C KRISHNA, BMP #### [facility] ([id number]) [address] [place] [address] 80362 CBC AND AUTO DIFFon 03-17-19 25 ABSOLUTE BASOPHIL 0.1 X10E9/L Normal 0.0-0.2 [facility] Comment on above: Performed By: #### C KRISHNA, BMP #### [facility] ([id number]) [address] [place] [address] 82682 ABSOLUTE NEUTROPHIL 3.4 X10E9/L Normal 1.5-6.6 [facility] Comment on above: Performed By: #### C BCA, BMP #### [facility] ([id number]) [address] [place] [address] 64541 Basophils/100 WBC (Bld) 1.2 % Normal [facility] Comment on above: Performed By: #### C BCA, BMP #### [facility] ([id number]) [address] [place] [address] 79988 Eosinophils (Bld) [#/Vol] 0.1 10*3/uL Normal 0.0-0.4 [facility] Comment on above: Performed By: #### C KRISHNA, BMP #### [facility] ([id number]) [address] [place] [address] 53786 Eosinophils/100 WBC (Bld) 2.3 % Normal [facility] Comment on above: Performed By: #### C KRISHNA, BMP #### [facility] ([id number]) [address] [place] [address] 47729 Erythrocyte distribution width (RBC) [Ratio] 13.9 % Normal 11.5-15.0 [facility] Comment on above: Performed By: #### C KRISHNA, BMP #### [facility] ([id number]) [address] [place] [address] 91203 Hematocrit (Bld) [Volume fraction] 43.1 % Normal 35-47 [facility] Comment on above: Performed By: #### C KRISHNA, BMP #### [facility] ([id number]) [address] [place] [address] 55453 Hemoglobin (Bld) [Mass/Vol] 14.6 g/dL Normal 11.7-15.5 [facility] Comment on above: Performed By: #### C KRISHNA, BMP #### [facility] ([id number]) [address] [place] [address] 15191 Lymphocytes (Bld) [#/Vol] 0.7 10*3/uL Low 1.0-3.5 [facility] Comment on above: Performed By: #### C KRISHNA, BMP #### [facility] ([id number]) [address] [place] [address] 63945 Lymphocytes/100 WBC (Bld) 14.9 % Normal [facility] Comment on above: Performed By: #### C KRISHNA, BMP #### [facility] ([id number]) [address] [place] [address] 85757 MCH (RBC) [Entitic mass] 30.8 pg Normal 27-34 [facility] Comment on above: Performed By: #### C KRISHNA, BMP #### [facility] ([id number]) [address] [place] [address] 84057 MCHC (RBC) [Mass/Vol] 33.8 g/dL Normal 32-36 [facility] Comment on above: Performed By: #### C KRISHNA, BMP #### [facility] ([id number]) [address] [place] [address] 17390 MCV (RBC) [Entitic vol] 91 fL Normal 80-100 [facility] Comment on above: Performed By: #### Ta KELLER, BMP #### [facility] ([id number]) [address] [place] [address] 91317 Monocytes (Bld) [#/Vol] 0.7 10*3/uL Normal 0-0.9 [facility] Comment on above: Performed By: #### Ta KELLER, BMP #### [facility] ([id number]) [address] [place] [address] 52866 Monocytes/100 WBC (Bld) 13.9 % Normal [facility] Comment on above: Performed By: #### Ta KELLER, BMP #### [facility] ([id number]) [address] [place] [address] 30195 Neutrophils/100 WBC (Bld) 67.7 % Normal [facility] Comment on above: Performed By: #### Ta KELLER, BMP #### [facility] ([id number]) [address] [place] [address] 73103 Platelet mean volume (Bld) [Entitic vol] 7.0 fL Normal 7-12 [facility] Comment on above: Performed By: #### Ta KELLER, BMP #### [facility] ([id number]) [address] [place] [address] 82489 Platelets (Bld) [#/Vol] 163 10*3/uL Normal 150-450 [facility] Comment on above: Performed By: #### C KRISHNA, BMP #### [facility] ([id number]) [address] [place] [address] 61079 RBC COUNT 4.72 X10E12/L Normal 3.80-5.20 [facility] Comment on above: Performed By: #### C KRISHNA, BMP #### [facility] ([id number]) [address] [place] [address] 76102 WBC (Bld) [#/Vol] 5.0 10*3/uL Normal 4.0-11.0 [facility] Comment on above: Performed By: #### C KRISHNA, BMP #### [facility] ([id number]) [address] [place] [address] 62311 Natriuretic peptide B [Mass/ Vol]on 03-17-2024 Natriuretic peptide B (Bld) [Mass/Vol] 46 pg/mL Normal <100.0 [facility] Comment on above: Performed By: #### C KRISHNA, BMP #### [facility] ([id number]) [address] [place] [address] 77440 RESP PATHOGENS/[id number] 03-17-2024 Respiratory pathogens DNA and RNA panel LILIAN+non-probe (Nph) SPECIMEN SOURCE NASO PHARYNX INFLUENZA A H3 Detected (qualifier value) Abnormal NDET [facility] Comment on above: Performed By: #### C BCA, 44961-1, PINR, 76096-1, CMP, 76443-1, 07982-5, 14754-6 #### [facility] ([id number]) [address] [place] [address] 41367 SARS/FLU A+B/RSV by NAAT/Mol ecularon 03-17-2024 SARS/FLU A+B/RSV by NAAT/Molecular FLU A PCR Positive (qualifier value) FLU B PCR Negative (qualifier value) RSV by PCR Negative (qualifier value) SARS CoV 2 Not detected (qualifier value) NOTE The Xpert Xpress SARS-CoV-2/Flu/RSV Plus test is a rapid, multiplexed real-time RT-PCR test intended for the simultaneous qualitative detection and differentiation of SARS-CoV-2, influenza A, influenza B and respiratory syncytial virus (RSV) viral RNA from individuals suspected of respiratory viral infection consistent with COVID-19 by their healthcare provider. This test has not been validated in asymptomatic patients. The Xpert Xpress SARS-CoV-2 test is intended for use by qualified and trained operators who are performing tests using either [employer] or [employer] systems and is limited to laboratories that meet the CLIA requirements to perform high and moderate complexity tests. The Xpert Xpress SARS-CoV-2/Flu/RSV Plus is only for use under the Food and Drug Administration's Emergency Use Authorization. Results are for the simultaneous detection and differentiation of SARS-CoV-2, influenza A, influenza B and RSV nucleic acids in clinical specimens. SARS-CoV-2, influenza A, influenza B and RSV RNA identified by this test are generally detectable in upper respiratory samples during the acute phase of infection. Positive results are indicative of the presence of the identified virus, but do not rule out bacterial infection or co-infection with other pathogens not detected by this test. Clinical correlation with patient history and other diagnostic information is necessary to determine patient infection status. The agent detected may not be the definite cause of disease. Negative results do not preclude SARS-CoV-2, influenza A, influenza B and RSV infection and should not be used as the sole basis for treatment or other patient management decisions. Negative results must be combined with clinical observations, patient history and epidemiological information. An Invalid result may occur with specimen-associated inhibition unable to be resolved with specimen repeat. Fact Sheet for Healthcare Providers: https://www.fda.gov/med ia/402968/download Fact Sheet for Patients: https://www.fda.gov/med ia/263179/download Normal [facility] Comment on above: Performed By: #### C KRISHNA, BMP #### [facility] ([id number]) [address] [place] [id number] Troponin I.cardiac High sens itivity method [Mass/Vol]on 03-17-2024 1 HOUR TROP I, HIGH SENSITIVITY 3 ng/L Normal <16 [facility] Comment on above: Performed By: #### C BCA, BMP #### [facility] ([id number]) [address] [place] [id number] TROPONIN I, HIGH SENSITIVITY 4 ng/L Normal <16 [facility] Comment on above: Performed By: #### C BCA, BMP #### [facility] ([id number]) [address] [place] [address] [id number] XR CHEST 2 VWSon 03-17-2024 XR CHEST 2 VWS XR CHEST 2 VWS XR CHEST 2 VWS HISTORY: Shortness of breath, cough, wheezing, fall COMPARISON: 02/28/2024 FINDINGS: PA and lateral upright films obtained. Cardiomediastinal silhouette is stable. No pneumothorax or pleural effusion. No focal consolidation. IMPRESSION: * No acute cardiopulmonary process. Approved by Kiah Dickens MD on 03/17/2024 10:50 AM I, Fortunato Mancia MD have personally reviewed the image(s) and agree with and/or edited the report Finalized by Fortunato Mancia MD on 03/17/2024 11:12 AM Normal [facility] XR SPINE LUMBAR 2 OR 3 VWSon 03-17-2024 XR SPINE LUMBAR 2 OR 3 VWS XR SPINE LUMBAR 2 OR 3 VWS XR SPINE LUMBAR 2 OR 3 VWS CLINICAL INFORMATION: midline and right sided back pain since recent fall COMPARISON: 08/30/14. FINDINGS: No acute fracture. Dextroconvex scoliosis. Mild anterolisthesis of L4 on L5. Exaggerated lumbar lordosis. Endplate and facet degenerative changes are noted at multiple levels with vacuum disc phenomenon. Surgical clips in the right upper quadrant. IMPRESSION: * Degenerative changes with dextroconvex scoliosis. Finalized by Robert Nascimento MD on 03/17/2024 10:51 AM [facility] CBC AND AUTO DIFFon 02-28-19 25 ABSOLUTE BASOPHIL 0.0 X10E9/L Normal 0.0-0.2 [facility] Comment on above: Performed By: #### C KRISHNA, BMP #### [facility] ([id number]) [address] [place] [address] 26030 ABSOLUTE NEUTROPHIL 5.1 X10E9/L Normal 1.5-6.6 [facility] Comment on above: Performed By: #### C KRISHNA, BMP #### [facility] ([id number]) [address] [place] [address] 52290 Basophils/100 WBC (Bld) 0.4 % [facility] Comment on above: Performed By: #### C KRISHNA, BMP #### [facility] ([id number]) [address] [place] [address] 27352 Eosinophils (Bld) [#/Vol] 0.0 10*3/uL Normal 0.0-0.4 [facility] Comment on above: Performed By: #### C KRISHNA, BMP #### [facility] ([id number]) [address] [place] [address] 18456 Eosinophils/100 WBC (Bld) 0.1 % [facility] Comment on above: Performed By: #### C KRISHNA, BMP #### [facility] ([id number]) [address] [place] [address] [place] [address] Erythrocyte distribution width (RBC) [Ratio] 13.5 % Normal 11.5-15.0 [facility] Comment on above: Performed By: #### C KRISHNA, BMP #### [facility] ([id number]) [address] [place] [address] 99729 Hematocrit (Bld) [Volume fraction] 45.9 % Normal 35-47 [facility] Comment on above: Performed By: #### C KRISHNA, BMP #### [facility] ([id number]) [address] [place] [address] 83851 Hemoglobin (Bld) [Mass/Vol] 15.7 g/dL High 11.7-15.5 [facility] Comment on above: Performed By: #### C BCA, BMP #### [facility] ([id number]) [address] [place] [address] 97729 Lymphocytes (Bld) [#/Vol] 1.2 10*3/uL Normal 1.0-3.5 [facility] Comment on above: Performed By: #### C KRISHNA, BMP #### [facility] ([id number]) [address] [place] [address] 23412 Lymphocytes/100 WBC (Bld) 18.1 % Normal [facility] Comment on above: Performed By: #### C KRISHNA, BMP #### [facility] ([id number]) [address] [place] [address] 55743 MCH (RBC) [Entitic mass] 30.9 pg Normal 27-34 [facility] Comment on above: Performed By: #### C KRISHNA, BMP #### [facility] ([id number]) [address] [place] [address] 40407 MCHC (RBC) [Mass/Vol] 34.2 g/dL Normal 32-36 [facility] Comment on above: Performed By: #### C BCA, BMP #### [facility] ([id number]) [address] [place] [address] 50253 MCV (RBC) [Entitic vol] 90 fL Normal 80-100 [facility] Comment on above: Performed By: #### C BCA, BMP #### [facility] ([id number]) [address] [place] [address] 67890 Monocytes (Bld) [#/Vol] 0.2 10*3/uL Normal 0-0.9 [facility] Comment on above: Performed By: #### C KRISHNA, BMP #### [facility] ([id number]) [address] [place] [address] 69845 Monocytes/100 WBC (Bld) 2.7 % Normal [facility] Comment on above: Performed By: #### C KRISHNA, BMP #### [facility] ([id number]) [address] [place] [address] 58673 Neutrophils/100 WBC (Bld) 78.7 % Normal [facility] Comment on above: Performed By: #### C KRISHNA, BMP #### [facility] ([id number]) [address] [place] [address] 65971 Platelet mean volume (Bld) [Entitic vol] 7.4 fL Normal 7-12 [facility] Comment on above: Performed By: #### C KRISHNA, BMP #### [facility] ([id number]) [address] [place] [address] 98759 Platelets (Bld) [#/Vol] 184 10*3/uL Normal 150-450 [facility] Comment on above: Performed By: #### C KRISHNA, BMP #### [facility] ([id number]) [address] [place] [address] 12712 RBC COUNT 5.08 X10E12/L Normal 3.80-5.20 [facility] Comment on above: Performed By: #### C KRISHNA, BMP #### [facility] ([id number]) [address] [place] [address] 59686 WBC (Bld) [#/Vol] 6.5 10*3/uL Normal 4.0-11.0 [facility] Comment on above: Performed By: #### C KRISHNA, BMP #### [facility] ([id number]) [address] [place] [address] 45734 COMPREHENSIVE METABOLIC PANE [facility] 02-29-2024 Albumin [Mass/Vol] 4.2 g/dL Normal 3.2-5.3 [facility] Comment on above: Performed By: #### C KRISHNA, BMP #### [facility] ([id number]) [address] [place] [address] 81636 ALP [Catalytic activity/Vol] 64 U/L Normal 39-130 [facility] Comment on above: Performed By: #### C KRISHNA, BMP #### [facility] ([id number]) [address] [place] [address] 18740 ALT [Catalytic activity/Vol] 39 U/L High 0-31 [facility] Comment on above: Performed By: #### C KRISHNA, BMP #### [facility] ([id number]) [address] [place] [address] 22477 Anion gap [Moles/Vol] 8 mmol/L Normal 5-15 [facility] Comment on above: Performed By: #### C KRISHNA, BMP #### [facility] ([id number]) [address] [place] [address] 00639 AST [Catalytic activity/Vol] 29 U/L Normal 0-41 [facility] Comment on above: Performed By: #### C BCA, BMP #### [facility] ([id number]) [address] [place] [address] 67025 Bilirubin [Mass/Vol] 0.6 mg/dL Normal 0.3-1.2 [facility] Comment on above: Performed By: #### C BCA, BMP #### [facility] ([id number]) [address] [place] [address] 07833 Calcium [Mass/Vol] 9.2 mg/dL Normal 8.5-10.5 [facility] Comment on above: Performed By: #### C BCA, BMP #### [facility] ([id number]) [address] [place] [address] 69706 Chloride [Moles/Vol] 104 mmol/L Normal 98-109 [facility] Comment on above: Performed By: #### C KRISHNA, BMP #### [facility] ([id number]) [address] [place] [address] 87357 CO2 [Moles/Vol] 23 mmol/L Normal 22-32 [facility] Comment on above: Performed By: #### C KRISHNA, BMP #### [facility] ([id number]) [address] [place] [address] 72176 Creatinine [Mass/Vol] 0.63 mg/dL Normal 0.40-1.00 [facility] Comment on above: Result Comment: METH OD TRACEABLE TO IDMS STANDARD Performed By: #### C KRISHNA, BMP #### [facility] ([id number]) [address] [place] [address] 57646 eGFR (CKD-EPI) NON-RACE DEPENDENT >90 Normal >59 [facility] Comment on above: Result Comment: Reported eGFR is based on the CKD-EPI 2020 equation that does not use a race coefficient. Performed By: #### C KRISHNA, BMP #### [facility] ([id number]) [address] [place] [address] 60045 Glucose [Mass/Vol] 143 mg/dL High 65-99 [facility] Comment on above: Performed By: #### C KRISHNA, BMP #### [facility] ([id number]) [address] [place] [address] 72959 Potassium [Moles/Vol] 4.4 mmol/L Normal 3.5-5.0 [facility] Comment on above: Performed By: #### C BCA, BMP #### [facility] ([id number]) [address] [place] [address] 38861 Protein [Mass/Vol] 7.3 g/dL Normal 6.0-8.0 [facility] Comment on above: Performed By: #### C KRISHNA, BMP #### [facility] ([id number]) [address] [place] [address] 93947 Sodium [Moles/Vol] 135 mmol/L Normal 134-146 [facility] Comment on above: Performed By: #### C KRISHNA, BMP #### [facility] ([id number]) [address] [place] [address] 69280 Urea nitrogen [Mass/Vol] 23 mg/dL Normal 5-27 [facility] Comment on above: Performed By: #### C KRISHNA, BMP #### [facility] ([id number]) [address] [place] [address] 51275 MAGNESIUMon 02-29-2024 Magnesium [Mass/Vol] 2.4 mg/dL Normal 1.8-2.6 [facility] Comment on above: Performed By: #### C KRISHNA, BMP #### [facility] ([id number]) [address] [place] [address] 96861 BLOOD CULTUREon 02-28-2024 Bacteria identified Aer cx Nom (Bld) SPECIMEN NOTES SUBOPTIMAL VOLUME OF BLOOD COLLECTED, RESULTS MAY BE AFFECTED. CULTURE RESULTS NO GROWTH 5 DAYS Normal [facility] Comment on above: Performed By: #### C KRISHNA, BMP #### [facility] ([id number]) [address] [place] [address] 37573 Bacteria identified Aer cx Nom (Bld) SPECIMEN NOTES SUBOPTIMAL VOLUME OF BLOOD COLLECTED, RESULTS MAY BE AFFECTED. CULTURE RESULTS NO GROWTH 5 DAYS Normal [facility] Comment on above: Performed By: #### C KRISHNA, BMP #### [facility] ([id number]) [address] [place] [address] 23197 CBC AND AUTO DIFFon 02-27-19 25 ABSOLUTE BASOPHIL 0.0 X10E9/L Normal 0.0-0.2 [facility] Comment on above: Performed By: #### C BCA, 81124-9, PINR, 45818-1, CMP, 93140-3, 61720-0, 73820-9 #### [facility] ([id number]) [address] [place] [address] 74116 ABSOLUTE NEUTROPHIL 8.4 X10E9/L High 1.5-6.6 [facility] Comment on above: Performed By: #### C BCA, 69135-9, PINR, 75513-7, CMP, 17683-8, 40976-8, 16567-6 #### [facility] ([id number]) [address] [place] [address] 50618 Basophils/100 WBC (Bld) 0.3 % Normal [facility] Comment on above: Performed By: #### C BCA, 28681-5, PINR, 06693-4, CMP, 04588-2, 98084-1, 02733-0 #### [facility] ([id number]) [address] [place] [address] 85611 Eosinophils (Bld) [#/Vol] 0.0 10*3/uL Normal 0.0-0.4 [facility] Comment on above: Performed By: #### C BCA, 23259-7, PINR, 54895-5, CMP, 78405-0, 02962-9, 21636-8 #### [facility] ([id number]) [address] [place] [address] 10682 Eosinophils/100 WBC (Bld) 0.0 % Normal [facility] Comment on above: Performed By: #### C BCA, 04857-2, PINR, 91957-6, CMP, 31127-6, 93240-5, 42110-3 #### [facility] ([id number]) [address] [place] [address] 90272 Erythrocyte distribution width (RBC) [Ratio] 13.2 % Normal 11.5-15.0 [facility] Comment on above: Performed By: #### C BCA, 49941-9, PINR, 69049-8, CMP, 39583-4, 33208-5, 46739-5 #### [facility] ([id number]) [address] [place] [address] 71240 Hematocrit (Bld) [Volume fraction] 47.8 % High 35-47 [facility] Comment on above: Performed By: #### C BCA, 20657-7, PINR, 37710-3, CMP, 88300-3, 52859-7, 07644-8 #### [facility] ([id number]) [address] [place] [address] 30732 Hemoglobin (Bld) [Mass/Vol] 16.3 g/dL High 11.7-15.5 [facility] Comment on above: Performed By: #### C BCA, 79656-1, PINR, 92103-4, CMP, 72829-8, 28371-1, 53045-9 #### [facility] ([id number]) [address] [place] [address] 27125 Lymphocytes (Bld) [#/Vol] 1.2 10*3/uL Normal 1.0-3.5 [facility] Comment on above: Performed By: #### C BCA, 23948-5, PINR, 55096-4, CMP, 16366-0, 31320-7, 10872-9 #### [facility] ([id number]) [address] [place] [address] 67678 Lymphocytes/100 WBC (Bld) 11.6 % Normal [facility] Comment on above: Performed By: #### C BCA, 55520-3, PINR, 24241-0, CMP, 34715-8, 05410-9, 19934-8 #### [facility] ([id number]) [address] [place] [address] 93156 MCH (RBC) [Entitic mass] 30.9 pg Normal 27-34 [facility] Comment on above: Performed By: #### C BCA, 11543-7, PINR, 47682-2, CMP, 59854-1, 15218-5, 42076-9 #### [facility] ([id number]) [address] [place] [address] 41369 MCHC (RBC) [Mass/Vol] 34.0 g/dL Normal 32-36 [facility] Comment on above: Performed By: #### C BCA, 56151-6, PINR, 67761-3, CMP, 14852-8, 04491-4, 53518-4 #### [facility] ([id number]) [address] [place] [address] 28247 MCV (RBC) [Entitic vol] 91 fL Normal 80-100 [facility] Comment on above: Performed By: #### C BCA, 62870-9, PINR, 97781-7, CMP, 81913-5, 29249-7, 79268-8 #### [facility] ([id number]) [address] [place] [address] 75228 Monocytes (Bld) [#/Vol] 0.4 10*3/uL Normal 0-0.9 [facility] Comment on above: Performed By: #### C BCA, 13335-6, PINR, 41115-1, CMP, 96694-6, 66483-5, 16119-5 #### [facility] ([id number]) [address] [place] [address] 20014 Monocytes/100 WBC (Bld) 4.0 % Normal [facility] Comment on above: Performed By: #### C BCA, 50538-9, PINR, 34032-0, CMP, 94184-5, 30942-5, 32163-4 #### [facility] ([id number]) [address] [place] [address] 15794 Neutrophils/100 WBC (Bld) 84.1 % Normal [facility] Comment on above: Performed By: #### C BCA, 31017-3, PINR, 23868-8, CMP, 97883-5, 36159-7, 82255-1 #### [facility] ([id number]) [address] [place] [address] 58996 Platelet mean volume (Bld) [Entitic vol] 7.2 fL Normal 7-12 [facility] Comment on above: Performed By: #### C BCA, 78451-7, PINR, 91747-8, CMP, 55645-5, 99484-9, 99192-6 #### [facility] ([id number]) [address] [place] [address] 17486 Platelets (Bld) [#/Vol] 198 10*3/uL Normal 150-450 [facility] Comment on above: Performed By: #### C BCA, 93960-4, PINR, 51686-7, CMP, 78165-3, 70621-3, 86927-8 #### [facility] ([id number]) [address] [place] [address] 89025 RBC COUNT 5.26 X10E12/L High 3.80-5.20 [facility] Comment on above: Performed By: #### C BCA, 89430-3, PINR, 58688-1, CMP, 09823-0, 02269-2, 22113-9 #### [facility] ([id number]) [address] [place] [address] 20094 WBC (Bld) [#/Vol] 9.9 10*3/uL Normal 4.0-11.0 [facility] Comment on above: Performed By: #### C BCA, 72328-3, PINR, 37234-8, CMP, 31948-3, 09648-2, 26715-7 #### [facility] ([id number]) [address] [place] [address] 24108 COMPREHENSIVE METABOLIC PANE [facility] 02-28-2024 Albumin [Mass/Vol] 4.5 g/dL Normal 3.2-5.3 [facility] Comment on above: Performed By: #### C BCA, 93492-8, PINR, 89828-5, CMP, 46979-3, 99279-9, 59289-6 #### [facility] ([id number]) [address] [place] [address] 93507 ALP [Catalytic activity/Vol] 74 U/L Normal 39-130 [facility] Comment on above: Performed By: #### C BCA, 22621-0, PINR, 56554-6, CMP, 39797-6, 88766-8, 57454-2 #### [facility] ([id number]) [address] [place] [address] 17704 ALT [Catalytic activity/Vol] 25 U/L Normal 0-31 [facility] Comment on above: Performed By: #### C BCA, 50559-9, PINR, 67135-4, CMP, 49982-3, 54311-6, 91172-1 #### [facility] ([id number]) [address] [place] [address] 23476 Anion gap [Moles/Vol] 13 mmol/L Normal 5-15 [facility] Comment on above: Performed By: #### C BCA, 18920-5, PINR, 20626-1, CMP, 97041-8, 01930-4, 86609-4 #### [facility] ([id number]) [address] [place] [address] 50196 AST [Catalytic activity/Vol] 28 U/L Normal 0-41 [facility] Comment on above: Performed By: #### C BCA, 46703-4, PINR, 95166-4, CMP, 25176-7, 01048-1, 22962-8 #### [facility] ([id number]) [address] [place] [address] [place] [address] Bilirubin [Mass/Vol] 0.6 mg/dL Normal 0.3-1.2 [facility] Comment on above: Performed By: #### C BCA, 13629-7, PINR, 06656-7, CMP, 60104-5, 30862-3, 21951-6 #### [facility] ([id number]) [address] [place] [address] 26183 Calcium [Mass/Vol] 9.4 mg/dL Normal 8.5-10.5 [facility] Comment on above: Performed By: #### C BCA, 16721-8, PINR, 64422-0, CMP, 89917-3, 79283-8, 11935-2 #### [facility] ([id number]) [address] [place] [address] 38002 Chloride [Moles/Vol] 102 mmol/L Normal 98-109 [facility] Comment on above: Performed By: #### C BCA, 03173-7, PINR, 94934-5, CMP, 75631-9, 56488-6, 80136-3 #### [facility] ([id number]) [address] [place] [address] [place] [address] CO2 [Moles/Vol] 23 mmol/L Normal 22-32 [facility] Comment on above: Performed By: #### C BCA, 38878-1, PINR, 66464-0, CMP, 71870-1, 67595-2, 87040-7 #### [facility] ([id number]) [address] [place] [address] 37770 Creatinine [Mass/Vol] 0.73 mg/dL Normal 0.40-1.00 [facility] Comment on above: Result Comment: METH OD TRACEABLE TO IDMS STANDARD Performed By: #### C BCA, 06556-4, PINR, 18870-3, CMP, 20857-6, 69457-3, 52978-9 #### [facility] ([id number]) [address] [place] [address] 15764 GFR/1.73 sq M.predicted among non-blacks MDRD (S/P/Bld) [Vol rate/Area] 84 mL/min/{1.73_m2} Normal >59 [facility] Comment on above: Result Comment: Reported eGFR is based on the CKD-EPI 2020 equation that does not use a race coefficient. Performed By: #### C BCA, 25959-6, PINR, 28929-5, CMP, 11688-5, 26684-7, 40032-1 #### [facility] ([id number]) [address] [place] [address] 44376 Glucose [Mass/Vol] 133 mg/dL High 65-99 [facility] Comment on above: Performed By: #### C BCA, 87501-5, PINR, 03500-7, CMP, 29945-6, 97099-4, 87563-0 #### [facility] ([id number]) [address] [place] [address] 52670 Potassium [Moles/Vol] 4.2 mmol/L Normal 3.5-5.0 [facility] Comment on above: Performed By: #### C BCA, 05565-2, PINR, 47033-9, CMP, 67405-1, 89594-5, 59767-1 #### [facility] ([id number]) [address] [place] [address] 27069 Protein [Mass/Vol] 7.7 g/dL Normal 6.0-8.0 [facility] Comment on above: Performed By: #### C BCA, 51157-9, PINR, 52682-6, CMP, 99920-0, 01437-4, 29821-1 #### [facility] ([id number]) [address] [place] [address] 93459 Sodium [Moles/Vol] 138 mmol/L Normal 134-146 [facility] Comment on above: Performed By: #### C BCA, 20957-1, PINR, 70122-5, CMP, 55520-5, 32899-4, 68199-0 #### [facility] ([id number]) [address] [place] [address] 20669 Urea nitrogen [Mass/Vol] 25 mg/dL Normal 5-27 [facility] Comment on above: Performed By: #### C BCA, 96413-0, PINR, 35242-6, CMP, 86332-9, 93534-7, 64781-7 #### [facility] ([id number]) [address] [place] [address] 87060 Fibrin D-dimer DDU (PPP) [Ma ss/Vol]on 02-28-2024 D DIMER 194 ng/mL DDU Normal <255 [facility] Comment on above: Result Comment: Results <255 ng/mL DDU: The presence of a VTE can safely be excluded with a negative D-Dimer result and Wells score. A negative result doesn't exclude the possibility of DIC. The test be repeated along with other diagnostic tests if the patient's symptoms persist or worsen. [email or web address] Performed By: #### C BCA, 33796-6, PINR, 93620-0, CMP, 26008-8, 38678-6, 58388-6 #### [facility] ([id number]) [address] [place] [address] 57026 Lactate (P chavo) [Moles/Vol]o n 02-28-2024 Lactate [Moles/Vol] 3.0 mmol/L High 0.4-2.0 [facility] Comment on above: Performed By: #### C BCA, BMP #### [facility] ([id number]) [address] [place] [address], [place] [address] LACTATE W/REFLEX 2.9 mmol/L High 0.4-2.0 [facility] Comment on above: Performed By: #### Ta KELLER, BMP #### [facility] ([id number]) [address] [place] [address] 13612 MAGNESIUMon 02-28-2024 Magnesium [Mass/Vol] 2.1 mg/dL Normal 1.8-2.6 [facility] Comment on above: Performed By: #### C KRISHNA, 65409-9, PINR, 98286-7, CMP, 83829-5, 10034-6, 13728-8 #### [facility] ([id number]) [address] [place] [address] 28983 Natriuretic peptide B [Mass/ Vol]on 02-28-2024 Natriuretic peptide B (Bld) [Mass/Vol] 101 pg/mL High <100.0 [facility] Comment on above: Performed By: #### C KRISHNA, BMP #### [facility] ([id number]) [address] [place] [address] 59843 PROTIME AND INRon 02-28-2024 INR Coag (PPP) [Relative time] 1.0 {INR} Normal 0.8-1.1 [facility] Comment on above: Performed By: #### C KRISHNA, 66366-7, PINR, 85912-1, CMP, 49371-8, 09179-0, 65375-3 #### [facility] ([id number]) [address] [place] [address] 11096 PT Coag (PPP) [Time] 11.6 s Normal 9.8-13.2 [facility] Comment on above: Result Comment: NEW REFERENCE RANGE Performed By: #### C BCA, 19928-5, PINR, 47406-9, CMP, 09051-7, 46244-8, 13903-7 #### [facility] ([id number]) [address] [place] [address], [place] [address] SARS/FLU A+B/RSV by NAAT/Mol melanion 02-28-2024 SARS/FLU A+B/RSV by NAAT/Molecular FLU A PCR Negative (qualifier value) FLU B PCR Negative (qualifier value) RSV by PCR Positive (qualifier value) SARS CoV 2 Not detected (qualifier value) NOTE The Xpert Xpress SARS-CoV-2/Flu/RSV Plus test is a rapid, multiplexed real-time RT-PCR test intended for the simultaneous qualitative detection and differentiation of SARS-CoV-2, influenza A, influenza B and respiratory syncytial virus (RSV) viral RNA from individuals suspected of respiratory viral infection consistent with COVID-19 by their healthcare provider. This test has not been validated in asymptomatic patients. The Xpert Xpress SARS-CoV-2 test is intended for use by qualified and trained operators who are performing tests using either [employer] or [employer] systems and is limited to laboratories that meet the CLIA requirements to perform high and moderate complexity tests. The Xpert Xpress SARS-CoV-2/Flu/RSV Plus is only for use under the Food and Drug Administration's Emergency Use Authorization. Results are for the simultaneous detection and differentiation of SARS-CoV-2, influenza A, influenza B and RSV nucleic acids in clinical specimens. SARS-CoV-2, influenza A, influenza B and RSV RNA identified by this test are generally detectable in upper respiratory samples during the acute phase of infection. Positive results are indicative of the presence of the identified virus, but do not rule out bacterial infection or co-infection with other pathogens not detected by this test. Clinical correlation with patient history and other diagnostic information is necessary to determine patient infection status. The agent detected may not be the definite cause of disease. Negative results do not preclude SARS-CoV-2, influenza A, influenza B and RSV infection and should not be used as the sole basis for treatment or other patient management decisions. Negative results must be combined with clinical observations, patient history and epidemiological information. An Invalid result may occur with specimen-associated inhibition unable to be resolved with specimen repeat. Fact Sheet for Healthcare Providers: https://www.fda.gov/med ia/843883/download Fact Sheet for Patients: https://www.fda.gov/med ia/139877/download [facility] Comment on above: Performed By: #### C BCA, BMP #### [facility] ([id number]) [address] [place] [id number] Troponin I.cardiac High sens itivity method [Mass/Vol]on 02-28-2024 1 HOUR TROP I, HIGH SENSITIVITY 3 ng/L Normal <16 [facility] Comment on above: Performed By: #### C BCA, BMP #### [facility] [facility] ([id number]) [address] [place] [address] 29671 TROPONIN I, HIGH SENSITIVITY 3 ng/L Normal <16 [facility] Comment on above: Performed By: #### C BCA, 35455-5, PINR, 99352-1, CMP, 12932-6, 28357-0, 67435-4 #### [facility] ([id number]) [address] [place] [address] 91572 XR CHEST 1 VWon 02-28-2024 XR CHEST 1 VW XR CHEST 1 VW Single view chest History:Shortness of breath Difficulty breathing, shortness of breath Comparison: 08/29/2022 Findings: Single portable view of the chest. Stable cardiomediastinal silhouette. No focal opacity, effusion or pneumothorax. Impression: No evidence of acute cardiopulmonary process. Finalized by Fortunato Mancia MD on 02/28/2024 2:54 PM Normal [facility] aPTT Coag (PPP) [Time]on aPTT Coag (Bld) [Time] 33 s Normal 26-37 [facility] Comment on above: Result Comment: NEW REFERENCE RANGE Performed By: #### C BCA, 22816-0, PINR, 53209-5, CMP, 74301-4, 46855-9, 80886-7 #### [facility] ([id number]) [address] [place] [address] 55144 BASIC METABOLIC PANLon 10-15 Anion gap [Moles/Vol] 9 mmol/L Normal 5-15 [facility] Comment on above: Performed By: #### C BCA, BMP #### [facility] ([id number]) [address] [place] [address] 48331 Calcium [Mass/Vol] 8.9 mg/dL Normal 8.5-10.5 [facility] Comment on above: Performed By: #### C BCA, BMP #### [facility] ([id number]) [address] [place] [address] 01222 Chloride [Moles/Vol] 100 mmol/L Normal 98-109 [facility] Comment on above: Performed By: #### C BCA, BMP #### [facility] ([id number]) [address] [place] [address] 24392 CO2 [Moles/Vol] 23 mmol/L Normal 22-32 [facility] Comment on above: Performed By: #### C KRISHNA, BMP #### [facility] ([id number]) [address] [place] [address] 42611 Creatinine [Mass/Vol] 0.75 mg/dL Normal 0.40-1.00 [facility] Comment on above: Result Comment: METH OD TRACEABLE TO IDMS STANDARD Performed By: #### C KRISHNA, BMP #### [facility] ([id number]) [address] [place] [address] 90771 GFR/1.73 sq M.predicted among non-blacks MDRD (S/P/Bld) [Vol rate/Area] 81 mL/min/{1.73_m2} Normal >59 [facility] Comment on above: Result Comment: Reported eGFR is based on the CKD-EPI 2020 equation that does not use a race coefficient. Performed By: #### C BCA, BMP #### [facility] ([id number]) [address] [place] [address] 22627 Glucose [Mass/Vol] 96 mg/dL Normal 65-99 [facility] Comment on above: Performed By: #### C BCA, BMP #### [facility] ([id number]) [address] [place] [address] 64739 Potassium [Moles/Vol] 4.1 mmol/L Normal 3.5-5.0 [facility] Comment on above: Performed By: #### C BCA, BMP #### [facility] ([id number]) [address] [place] [address] 53579 Sodium [Moles/Vol] 132 mmol/L Low 134-146 [facility] Comment on above: Performed By: #### C KRISHNA, BMP #### [facility] ([id number]) [address] [place] [address] 45967 Urea nitrogen [Mass/Vol] 25 mg/dL Normal 5-27 [facility] Comment on above: Performed By: #### C KRISHNA, BMP #### [facility] ([id number]) [address] [place] [address] 02354 CBC AND AUTO DIFFon 10-16-19 24 ABSOLUTE BASOPHIL 0.1 X10E9/L Normal 0.0-0.2 [facility] Comment on above: Performed By: #### C BCA, BMP #### [facility] ([id number]) [address] [place] [address] 75643 ABSOLUTE NEUTROPHIL 7.5 X10E9/L High 1.5-6.6 [facility] Comment on above: Performed By: #### C BCA, BMP #### [facility] ([id number]) [address] [place] [address] 48395 Basophils/100 WBC (Bld) 0.7 % Normal [facility] Comment on above: Performed By: #### C BCA, BMP #### [facility] ([id number]) [address] [place] [address] 10032 Eosinophils (Bld) [#/Vol] 0.2 10*3/uL Normal 0.0-0.4 [facility] Comment on above: Performed By: #### C KRISHNA, BMP #### [facility] ([id number]) [address] [place] [address] 67798 Eosinophils/100 WBC (Bld) 2.2 % Normal [facility] Comment on above: Performed By: #### C KRISHNA, BMP #### [facility] ([id number]) [address] [place] [address] 89296 Erythrocyte distribution width (RBC) [Ratio] 13.6 % Normal 11.5-15.0 [facility] Comment on above: Performed By: #### C KRISHNA, BMP #### [facility] ([id number]) [address] [place] [address] 10301 Hematocrit (Bld) [Volume fraction] 45.2 % Normal 35-47 [facility] Comment on above: Performed By: #### C KRISHNA, BMP #### [facility] ([id number]) [address] [place] [address] 00092 Hemoglobin (Bld) [Mass/Vol] 15.2 g/dL Normal 11.7-15.5 [facility] Comment on above: Performed By: #### C KRISHNA, BMP #### [facility] ([id number]) [address] [place] [address] 86597 Lymphocytes (Bld) [#/Vol] 2.1 10*3/uL Normal 1.0-3.5 [facility] Comment on above: Performed By: #### C KRISHNA, BMP #### [facility] ([id number]) [address] [place] [address] 87557 Lymphocytes/100 WBC (Bld) 19.6 % Normal [facility] Comment on above: Performed By: #### C KRISHNA, BMP #### [facility] ([id number]) [address] [place] [address] 04368 MCH (RBC) [Entitic mass] 30.4 pg Normal 27-34 [facility] Comment on above: Performed By: #### C KRISHNA, BMP #### [facility] ([id number]) [address] [place] [address] 25410 MCHC (RBC) [Mass/Vol] 33.6 g/dL Normal 32-36 [facility] Comment on above: Performed By: #### C KRISHNA, BMP #### [facility] ([id number]) [address] [place] [address] 49240 MCV (RBC) [Entitic vol] 90 fL Normal 80-100 [facility] Comment on above: Performed By: #### Ta KELLER, BMP #### [facility] ([id number]) [address] [place] [address] 88690 Monocytes (Bld) [#/Vol] 0.9 10*3/uL Normal 0-0.9 [facility] Comment on above: Performed By: #### Ta KELLER, BMP #### [facility] ([id number]) [address] [place] [address] 36618 Monocytes/100 WBC (Bld) 8.1 % Normal [facility] Comment on above: Performed By: #### Ta KELLER, BMP #### [facility] ([id number]) [address] [place] [address] 90180 Neutrophils/100 WBC (Bld) 69.4 % Normal [facility] Comment on above: Performed By: #### Ta KELLER, BMP #### [facility] ([id number]) [address] [place] [address] 95785 Platelet mean volume (Bld) [Entitic vol] 7.0 fL Normal 7-12 [facility] Comment on above: Performed By: #### Ta KELLER, BMP #### [facility] ([id number]) [address] [place] [address] 15593 Platelets (Bld) [#/Vol] 195 10*3/uL Normal 150-450 [facility] Comment on above: Performed By: #### C BCA, BMP #### [facility] ([id number]) [address] [place] [address] 82688 RBC COUNT 5.00 X10E12/L Normal 3.80-5.20 [facility] Comment on above: Performed By: #### C BCA, BMP #### [facility] ([id number]) [address] [place] [address] 89921 WBC (Bld) [#/Vol] 10.8 10*3/uL Normal 4.0-11.0 [facility] Comment on above: Performed By: #### C KRISHNA, BMP #### [facility] ([id number]) [address] [place] [address] 57589 MAMM SCREENING UNILAT LT W C in home caregiver 06-23-2023 MAMM SCREENING UNILAT LT W CAD MAMM SCREENING UNILAT LT W CAD EXAM: MAMM SCREENING UNILAT LT W CAD, 06/23/2023 10:52 AM CLINICAL INDICATIONS: Screening COMPARISON: 06/21/2022 and priors TECHNIQUE: Left digital tomosynthesis MLO and CC views of the breasts were obtained, with creation of synthetic 2D views. Computer aided detection was utilized. FINDINGS: The breasts are almost entirely fatty. There are no suspicious masses, calcifications, or areas of architectural distortions. IMPRESSION: No mammographic evidence of malignancy. BI-RADS: BI-RADS 1 - Negative Recommendation: Routine screening mammogram in 1 year A letter of notification will be sent to the patient regarding the results. Finalized by Otf Bobby MD on 06/23/2023 11:31 AM 1 a MAMM 1 YR Normal [facility] Encounters Encounter Date Encounter Type Care Provider Facility Start: 04-19-2024 End: 04-19-2024 Emergency department patient visit [facility] Start: 03-17-2024 End: 03-19-2024 ambulatory RICHIE Rinku [facility] Start: 02-28-2024 End: 02-29-2024 ambulatory RICHIE Dobbs [facility] Start: 01-28-2024 End: 01-28-2024 ambulatory MISSY Barajas [facility] Start: 11-11-2023 End: 11-11-2023 [facility] Start: 10-16-2023 End: 10-16-2023 Emergency department patient visit RICHIE Dobbs [facility] Start: 06-23-2023 End: 06-23-2023 ambulatory RICHIE Rinku [facility] Start: 04-28-2023 End: 04-28-2023 [facility] Start: 09-01-2018 End: 09-01-2018 Patient encounter procedure SHARON PAY Facility: Procedures Date Procedure Procedure Detail Performing Clinician Start: 04-28-2023 Follow-up visit Follow-up BO VELASCO Payers Date Payer Category Payer Medicare [id number] 1959 Medicare [id number] 1959 Unknown [id number] 1945 Unknown [id number] 2.16.84 [id number] 1945 Unknown [id number] 2.. [id number] 1945 Unknown [id number] 2.16. [id number] 1945 Unknown [id number] 2.16. [id number] 1945 Unknown [id number] 2.16.8 [id number] 1945 Unknown [id number] 2.16.8 [id number] 1945 Unknown [id number] 2.16.8 [id number] 1945 Unknown [id number] 2.16.8 [id number] 1945 Unknown [id number] 2.16.8 [id number] Summary Purpose Family History No Family History Records FoundNo Family History Records Found Advance Directives No Advanced Directives Records FoundNo Advanced Directives Records Found Additional Source Comments INFORMATION SOURCE (unrecogn ized section and content) DATE CREATED AUTHOR 03/04/2020 [facility] DATE CREATED AUTHOR 'S ORGANIZ ATSUNIL 04/20/2024 [facility] FOR RECORDS PERTAINING TO PATIENTS WHO ARE OR HAVE BEEN ENROLLED IN A CHEMICAL DEPENDENCY/SUBSTANCEABUSE PROGRAM, SOME INFORMATION MAY BE OMITTED. This clinical summary was aggregated from multiple sources. Caution should be exercised in using it in the provision of clinical care. This summary normalizes information from multiple sources, and as a consequence, information in this document may materially change the coding, format and clinical context of patient data. In addition, data may be omitted in some cases. CLINICAL DECISIONS SHOULD BE BASED ON THE PRIMARY CLINICAL RECORDS. [employer] provides no warranty or guarantee of the accuracy or completeness of information in this document.
--- NOTE | 2024-04-22 07:58 | PC.NURSE ---
Patient is awake and alert IV is in place and intact Took patient vitals BP:130/65 HR:65 SPO2:94% RA Temp:97.6 Pain:0/10 Patient was still in bed upon taking vitals, after vital patient got up to get ready for the day Patient was offered help to get changed and ready, but denied any help.
[2024-04-22] MEDS: CITALOPRAM HYDROBROMIDE 20 MG TABLET PO (08:12)
[2024-04-22] MEDS: LOSARTAN POTASSIUM 25 MG TABLET PO (08:12)
[2024-04-22] MEDS: METOPROLOL SUCCINATE 25 MG TAB.ER.24H PO (08:12)
[2024-04-22] MEDS: MONTELUKAST SODIUM 10 MG TABLET PO (08:12)
[2024-04-22] MEDS: FUROSEMIDE 40 MG TABLET PO (08:13)
[2024-04-22] MEDS: SPIRONOLACTONE 25 MG TABLET PO (08:13)
[2024-04-22] MEDS: 0.9 % SODIUM CHLORIDE 250 ML 10 ML IV (08:15)
--- NOTE | 2024-04-22 09:45 | PC.NURSE ---
Pts. L AC francisco line infiltrated post Clindamycin IV Drip New IV line was inserted @0935 in L Wrist 22g
--- NOTE | 2024-04-22 09:46 | PC.NURSE ---
Pts L AC IV line infiltrated New IV inserted @0935 22g L wrist Pt tolerated successful site CDI
[2024-04-22] MEDS: BUDESONIDE 0.5 MG/2 ML AMPULE NEB IH ×2 (10:29→23:02)
--- NOTE | 2024-04-22 11:00 | CM.NOTE ---
Rounds made with Dr. Wiggins, no discharge today. Arm redness has decrease but pt c/o increased swelling to inner arm. No discharge today, will continue IV antibiotics. Pt will remain in OBS status.
--- NOTE | 2024-04-22 11:30 | SWNOTE1 ---
SW met with pt as she had financial concerns. Pt voiced she only gets social security each month and it is limited income. She stated she applied or Medicaid 3-4 years ago and missed it by $10-15. She stated she usually goes to [facility] and they have a program that she qualified for. SW advised pt that she is not sure, but SW will reach out to patient financial services and have someone come speak with her or call her. Pt in agreement. Pt used to work for hospice. Pt is independent and has no other discharge needs at this time. CATHIE did leave a voicemail for Katelyn in [employer]. CATHIE also sent email to Katelyn and Penny in [facility] that pt would like to speak with someone about any programs that could assist with any bills that pt may accrue.
--- NOTE | 2024-04-22 11:31 | PC.NURSE ---
pt refused socks states it makes her feet sweaty
--- NOTE | 2024-04-22 11:32 | PC.NURSE ---
patient denied socks states it makes her feet sweaty
--- NOTE | 2024-04-22 11:34 | PC.NURSE ---
patient denied socks states it makes her feet sweaty still in street clothes, does not ant to wear gown
--- NOTE | 2024-04-22 11:47 | P.HP_ITS ---
HPI H&P: HPI History of Present Illness Chief complaint: CELLULITIS RT ARM Narrative: 78 y/o female to ER with redness and swelling in right arm. History of mastectomy for breast cancer and developed lymphedema in right arm. History of cellulitis in past. Developed redness and swelling and to ER /10. Given IV vancomycin and discharged home with oral doxycycline. Symptoms worsened over time. Increased pain, redness and swelling. Skin warm to touch. Afebrile and no nausea or emesis. To ER and WBC 7.2. x-ray arm negative. Given antibiotics and admitted. Started IV clindamycin. Erythema in arm improved but continued swelling. Not as much pain. Remains afebrile. Opioid HPI Opioid Management Most Recent Pain and Opioid Data: Last Pain Scale 1 04/22/24 00:53 04/22/24 Last Pain Assessment 04/22/24 11:29 Last MAR Pain Assessment 04/22/24 00:53 Last ORT Total Score 0 04/21/24 16:40 04/21/24 Last ORT Risk Category Low Risk 04/21/24 16:40 04/21/24 Review of Systems ROS Constitutional Denies: fever, chills or fatigue Cardiovascular Denies: chest pain, palpitations or edema Respiratory Denies: shortness of breath, cough or wheezing Gastrointestinal Denies: abdominal pain, nausea, vomiting or diarrhea Genitourinary Denies: painful urination Integumentary/Breast Reports: redness, skin tenderness and skin swelling PFSH [facility] Medical History (Updated 04/22/24 @ 11:11 by Tommy Wiggins MD) Congestive heart failure ?I50.9 - Heart failure, unspecified (ICD-10) Asthma ?J45.909 - Unspecified asthma, uncomplicated (ICD-10) Macular degeneration ?H35.30 - Unspecified macular degeneration (ICD-10) Cancer of breast, female ?C50.919 - Malignant neoplasm of unspecified site of unspecified female breast (ICD-10) Depression ?F32.A - Depression, unspecified (ICD-10) Cellulitis ?L03.90 - Cellulitis, unspecified (ICD-10) CHF (congestive heart failure) ?I50.9 - Heart failure, unspecified (ICD-10) Surgical History (Updated 04/21/24 @ 16:35 by Lorrie Keenan) Hx laparoscopic cholecystectomy ?Z90.49 - Acquired absence of other specified parts of digestive tract (ICD- 10) History of knee replacement procedure of right knee ?Z96.651 - Presence of right artificial knee joint (ICD-10) History of knee replacement procedure of left knee ?Z96.652 - Presence of left artificial knee joint (ICD-10) S/P removal of right ovary ?Z90.721 - Acquired absence of ovaries, unilateral (ICD-10) H/O mastectomy ?Z90.10 - Acquired absence of unspecified breast and nipple (ICD-10) Family History (Updated 04/21/24 @ 16:35 by Lorrie Keenan) Other Family history not known due to adoption Social History (Updated 04/21/24 @ 16:39 by Lorrie Keenan) Within the past year, how often did you have a drink containing alcohol: monthly or less Smoking status: Never smoker Non-prescribed substance use: denies use Previous occupational history: retired RN Highest level of school completed/degree received: Associate degree: occupational, technical, vocational program Are you now , , , , never or living with a partner: Little interest or pleasure in doing things: not at all Feeling down, depressed, or hopeless: not at all Feel stressed/tense/nervous/anxious/difficulty sleeping: not at all Meds Home Medications and Allergies Home Medications ?Medication ?Instructions ?Recorded ?Confirmed ?Type citalopram 20 mg tablet 20 mg PO DAILY 04/21/24 04/21/24 History doxycycline hyclate 100 mg capsule 100 mg PO BID 04/21/24 04/21/24 History fluticasone 250 mcg-salmeterol 50 1 inh inhalation Q12H 04/21/24 04/21/24 History mcg/dose blistr powdr for inhalation furosemide 40 mg tablet 40 mg PO DAILY 04/21/24 04/21/24 History metoprolol succinate 25 mg 25 mg PO DAILY 04/21/24 04/21/24 History tablet,extended release 24 hr montelukast 10 mg tablet 10 mg PO DAILY 04/21/24 04/21/24 History spironolactone 25 mg tablet 25 mg PO DAILY 04/21/24 04/21/24 History valsartan 40 mg tablet 40 mg PO DAILY 04/21/24 04/21/24 History Allergies Allergy/AdvReac Type Severity Reaction Status Date / Time ibuprofen Allergy Severe Congested Verified 04/21/24 13:50 moxifloxacin (From Avelox) Allergy Severe Anaphylaxis Verified 04/21/24 13:50 Penicillins Allergy Severe Rash Verified 04/21/24 13:50 Exam Constitutional Vital Signs, click to edit/add: Last Vital Signs Temp 97.7 F 04/22/24 11:30 Pulse 68 04/22/24 11:30 Resp 18 04/22/24 08:32 BP 102/62 04/22/24 11:30 Pulse Ox 90 L 04/22/24 11:30 O2 Del Method Room Air 04/22/24 11:30 Documenting provider has reviewed patient's vital signs: yes Common normals: no apparent distress, oriented x3 and alert HENMT Common normals: normocephalic Eye Common normals: PERRL and EOMs intact bilaterally Respiratory Common normals: normal respiratory effort and clear to auscultation bilaterally Cardio Common normals: regular rate, regular rhythm, no gallops, no murmurs and no rub GI Common normals: Normal to inspection, nondistended, normoactive bowel sounds present and non-tender Extremity Common normals: no pedal edema Right upper extremity: upper arm (Mild diffuse erythema and swelling from upper arm to forearm) Results Labs Labs: Short CBC 04/21/24 04/22/24 Range/Units 13:56 05:18 WBC 7.2 6.1 (4.0-11.0) 10^3/uL Hgb 15.5 14.0 (12.0-16.0) g/dL Hct 47.2 42.6 (36.0-48.0) % Plt Count 200 187 (150-450) 10^3/uL BMP 04/21/24 04/22/24 13:56 05:18 Sodium 138 141 Potassium 3.5 3.4 L Chloride 103 105 Carbon Dioxide 28.1 25.8 BUN 19.0 H 17.0 Creatinine 1.00 0.74 Glucose 127 H 101 Calcium 9.1 8.7 Liver Function 04/21/24 Range/Units 13:56 Total Bilirubin 0.4 (0.2-1.0) mg/dL AST 19 (15-37) U/L ALT 25 (14-59) U/L Alkaline Phosphatase 78 (46-116) U/L Albumin 3.5 (3.4-5.0) g/dL Assessment and Plan Assessment and Plan (1) Cellulitis of arm, right: (2) Failure of outpatient treatment: (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 Symptoms improved with IV clindamycin but still swelling. Resumed home medication and no evidence of fluid overload. Will continue IV antibiotics and reassess in am. Likely will be ready for discharge tomorrow.
--- NOTE | 2024-04-22 11:50 | CM.NOTE ---
Medicare Outpatient Observation Notice discussed with pt, pt verbalizes understanding and signs paper. Original given to pt and copy placed in pt's chart.
--- NOTE | 2024-04-22 12:36 | SWNOTE1 ---
SW received email back from Penny at [facility] and she will reach out to patient today.
--- NOTE | 2024-04-22 16:27 | PC.NURSE ---
early childhood education instructor verifies and co-signs student nurse charting.
[2024-04-22] MEDS: ACETAMINOPHEN 500 MG TABLET 1000 MG PO (21:04)
[2024-04-23] VITALS (8 sets, daily range): BP systolic 132–147; BP diastolic 71–78; PULSE 61–67; TEMP 36.3–36.4; O2SAT 92–93
[2024-04-23] MEDS: CLINDAMYCIN PHOS 100 MG IV ×3 (03:17→13:52)
[2024-04-23 06:03] LABS: Basophils Absolute Auto 0.1 10^3/uL (0.0-0.1); Basophils Percent Auto 1.2 % (0.2-2.0); Eosinophils Absolute Auto 0.3 10^3/uL (0.0-0.7); Eosinophils Percent Auto 4.8 % (0.9-7.0); Hematocrit 42.5 % (36.0-48.0); Hemoglobin 14.1 g/dL (12.0-16.0); Immature Granulocytes Abs Auto 0.06 10^3/uL (0.00-0.03); Immature Granulocytes Pct Auto 1.1 % (0.0-0.5); Lymphocytes Absolute Auto 1.9 10^3/uL (1.2-3.8); Lymphocytes Percent Auto 33.9 % (20.5-60.0); Mean Corpuscular HGB Conc 33.2 g/dL (29.9-35.2); Mean Corpuscular Hemoglobin 30.6 pg (26.7-34.0); Mean Corpuscular Volume 92.2 fL (81.0-99.0); Mean Platelet Volume 8.8 fL (9.5-13.5); Monocytes Absolute Auto 0.6 10^3/uL (0.3-0.8); Monocytes Percent Auto 11.3 % (1.7-12.0); Neutrophils Absolute Auto 2.7 10^3/uL (1.4-6.5); Neutrophils Percent Auto 47.7 % (43.0-75.0); Platelet Count 205 10^3/uL (150-450); Red Blood Count 4.61 10^6/uL (4.20-5.40); Red Cell Distribution Width 14.1 % (11.0-15.0); White Blood Count 5.7 10^3/uL (4.0-11.0)
[2024-04-23 06:16] LABS: Anion Gap 10.5; BUN Creatinine Ratio 18.6; Calcium 9.5 mg/dL (8.5-10.1); Carbon Dioxide 30.1 mmol/L (21.0-32.0); Chloride 104 mmol/L (98-107); Estimated GFR (African America >60 (>=60 mL/min/1.73m^2); Estimated GFR (Non-African Ame >60 (>=60 mL/min/1.73m^2); Glucose 101 mg/dL (74-106); Potassium 3.6 mmol/L (3.5-5.1); Sodium 141 mmol/L (136-145)
--- NOTE | 2024-04-23 07:55 | PC.NURSE ---
Patient is awake and alert. Vital signs: BP: 147/71 HR: 65 SpO2: 92% Temp: 97.6 RR: 18 Last BM: yesterday 04/22/2024 April student nurse & professor assessed IV on left wrist
[2024-04-23] MEDS: ACETAMINOPHEN 500 MG TABLET 1000 MG PO (08:26)
[2024-04-23] MEDS: MONTELUKAST SODIUM 10 MG TABLET PO (08:27)
[2024-04-23] MEDS: METOPROLOL SUCCINATE 25 MG TAB.ER.24H PO (08:27)
[2024-04-23] MEDS: SPIRONOLACTONE 25 MG TABLET PO (08:27)
[2024-04-23] MEDS: CITALOPRAM HYDROBROMIDE 20 MG TABLET PO (08:27)
[2024-04-23] MEDS: LOSARTAN POTASSIUM 25 MG TABLET PO (08:27)
[2024-04-23] MEDS: FUROSEMIDE 40 MG TABLET PO (08:27)
--- NOTE | 2024-04-23 10:28 | PC.NURSE ---
Patient wanted to go for a walk. She did well. shortness of breath. She held onto rails and was independent.
--- NOTE | 2024-04-23 10:36 | CM.NOTE ---
Rounds made with Dr. Wiggins, improvement with swelling and redness to arm. Pt will discharge on P.O antibiotics and f/u with PCP in one week.
[2024-04-23] MEDS: BUDESONIDE 0.5 MG/2 ML AMPULE NEB IH (10:54)
[2024-04-23] MEDS: ALBUTEROL SULFATE 2.5 MG/3 ML VIAL NEB IH (10:54)
--- NOTE | 2024-04-23 11:01 | PM.DS1 ---
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 78 y/o female to ER with redness and swelling in right arm. History of mastectomy for breast cancer and developed lymphedema in right arm. History of cellulitis in past. Developed redness and swelling and to ER 04/19. Given IV vancomycin and discharged home with oral doxycycline. Symptoms worsened over time. Increased pain, redness and swelling. Skin warm to touch. Afebrile and no nausea or emesis. To ER and WBC 7.2. x-ray arm negative. Given antibiotics and admitted. Hospital course: Started IV clindamycin. Resumed home medication. Erythema in arm improved but continued swelling. Pain improved and remained afebrile. No evidence of fluid overload. Ambulating well. Erythema mostly resolved and minimal swelling. Discharged home in stable condition. Take clindamycin for 10 days. Resume home medication as directed. Follow up with PCP in 1-2 weeks. Time Spent with Patient Time attestation: Total time spent providing and/or coordinating discharge services: Time spent: greater than 30 minutes Exam Constitutional Vital Signs, click to edit/add: Last Vital Signs Temp 97.6 F 04/23/24 08:11 Pulse 63 04/23/24 10:58 Resp 18 04/23/24 08:11 BP 147/71 H 04/23/24 08:11 Pulse Ox 92 L 04/23/24 10:58 O2 Del Method Room Air 04/23/24 10:58 Documenting provider has reviewed patient's vital signs: yes Common normals: no apparent distress, oriented x3 and alert HENMT Common normals: normocephalic Eye Common normals: PERRL and EOMs intact bilaterally Respiratory Common normals: normal respiratory effort and clear to auscultation bilaterally Cardio Common normals: regular rate, regular rhythm, no gallops, no murmurs and no rub GI Common normals: Normal to inspection, nondistended, normoactive bowel sounds present and non-tender Extremity Common normals: no pedal edema DS: Data Data Completed and Pending Labs on day of discharge: Labs from last 24 hours 04/23/24 05:35 WBC 5.7 RBC 4.61 Hgb 14.1 Hct 42.5 MCV 92.2 MCH 30.6 MCHC 33.2 RDW 14.1 Plt Count 205 MPV 8.8 L Neut % (Auto) 47.7 Lymph % (Auto) 33.9 [place] % (Auto) 11.3 Eos % (Auto) 4.8 Baso % (Auto) 1.2 Neut # (Auto) 2.7 Lymph # (Auto) 1.9 [place] # (Auto) 0.6 Eos # (Auto) 0.3 Baso # (Auto) 0.1 Abs Immat Gran (auto) 0.06 H Imm/Tot Granulo (auto) 1.1 H Sodium 141 Potassium 3.6 Chloride 104 Carbon Dioxide 30.1 Anion Gap 10.5 BUN 13.0 Creatinine 0.70 Est GFR ( Amer) >60 Est GFR (Non-Af Amer) >60 BUN/Creatinine Ratio 18.6 Glucose 101 Calcium 9.5 Discharge Plan Discharge Disposition: Home, Self-Care Condition: Good Discharge Medications: New clindamycin HCl 300 mg capsule 300 mg PO Q6H 10 Days Qty: 40 0RF Continued citalopram 20 mg tablet 20 mg PO DAILY fluticasone propion-salmeterol 250-50 mcg/dose blister with device 1 inh INHALATION Q12H furosemide 40 mg tablet 40 mg PO DAILY metoprolol succinate 25 mg tablet extended release 24 hr 25 mg PO DAILY montelukast 10 mg tablet 10 mg PO DAILY spironolactone 25 mg tablet 25 mg PO DAILY valsartan 40 mg tablet 40 mg PO DAILY Discontinued doxycycline hyclate 100 mg capsule 100 mg PO BID Activity: resume usual activities as tolerated Diet: advance to your usual diet Print Language: Turkish Forms: Portal Instructions Follow Up Appointments: Dr Maxwell Tamayo Az. # [phone] April 28, 2024 Wed. @ 9:00 am
--- NOTE | 2024-04-23 13:57 | PC.NURSE ---
checked on patient post lunch and pre final antibiotic drip she is doing well and eager to go home per dr. ordered she can go home post antibiotic drip @2pm
--- NOTE | 2024-04-27 14:41 | CM.DCFOLLOWU ---
04/27- 1st attempt. NO answer
== END 2024-04-23 15:24 | disposition home or self-care (01) ==
LOC: ER 15:59 → MS 04-22 06:12
PROVIDERS: Physician Assistant; Admitting Provider Family Medicine; Emergency Provider Emergency Medicine; PCP Family Medicine; Visit Provider Family Medicine
DX: L03.113 Cellulitis of right upper limb (principal); R06.09 Other forms of dyspnea; Z90.10 Acquired absence of unspecified breast and nipple; Z90.49 Acquired absence of other specified parts of digestive tract; Z90.721 Acquired absence of ovaries, unilateral; Z96.653 Presence of artificial knee joint, bilateral; I97.2 Postmastectomy lymphedema syndrome; I11.0 Hypertensive heart disease with heart failure; I43 Cardiomyopathy in diseases classified elsewhere; J44.9 Chronic obstructive pulmonary disease, unspecified; Y83.8 Other surgical procedures as the cause of abnormal reaction of the patient, or of later complication, without mention of misadventure at the time of the procedure; I50.30 Unspecified diastolic (congestive) heart failure
CPT/HCPCS: 36415; 71045; 73060; 73090; 80048; 80053; 83735; 83880; 85025; 94640; 96365; 96366; 96367; 96368; 96375; 99285; G0378; J0696; J1940; J3370